=== PATIENT | female | born 1950 | race African-American/Black ===

== ENCOUNTER 2016-04-26 16:54 | Inpatient (IN) | payer OTHER ==
--- NOTE | ~2016-04-26 | HP ---
Unit #: [id number] #: [id number] Patient: NOHEMY HOPKINS [id number] [address] [address] [id number] I MR#: [id number] NAME: NOHEMY HOPKINS ROOM: 00266 Age: 65 Sex: F Admission Date: 04/26/2016 : 1950 Attending Physician: Lucero Ortega M.D. Primary Care Physician: Delmy Oquendo A.P.R.N. HISTORY AND PHYSICAL CHIEF COMPLAINT Shortness of breath. HISTORY OF PRESENT ILLNESS The patient is a 65-year-old female with a past medical history of coronary artery disease, hypertension, hyperlipidemia, diabetes, and CHF, brought to the emergency room with worsening shortness of breath. The patient was recently seen in the emergency room on Sunday night concerning for flu. The patient tested negative on flu screen and was sent home for supportive care. The patient presented today with worsening shortness of breath. The patient was found to have acute kidney injury with a creatinine that went up to 3.2, hyperkalemia with a potassium of 5.4, and AST of 2412 and ALT 981. The patient is a poor historian, and the history is obtained by speaking to the patient's daughter at the bedside. Patient had decreased urine output yesterday, and the family is concerned that the patient might have a UTI. The patient did not void yesterday but voided earlier today, and urinalysis is still pending. The patient is being admitted for the above reasons. Denies any fever or chills. Positive for sick contacts with the flu. Denies missing the diuretics or any new medications. PAST MEDICAL HISTORY 1. Coronary artery disease. 2. Hypertension. 3. Hyperlipidemia. 4. Diabetes. 5. Peripheral arterial disease. PAST SURGICAL HISTORY 1. Cardiac catheterization. 2. Cardiac stent. 3. Aortobifemoral bypass. SOCIAL HISTORY Patient lives with her daughter. She quit smoking back in 2010. Her code status is Full Code. FAMILY HISTORY Diabetes. ALLERGIES No known drug allergies. HOME MEDICATIONS Unit #: [id number] #: [id number] Patient: NOHEMY HOPKINS 1. Lipitor. 2. Losartan. 3. Coated aspirin. 4. Vitamin. 5. Glipizide. 6. Metoprolol. 7. Tramadol. 8. Plavix. 9. Metformin. 10. Januvia. 11. Zetia. 12. Hydralazine. 13. Humibid. 14. Lasix. REVIEW OF SYSTEMS A 14-point review of systems was performed and only pertinent positive findings are described above. The remaining are negative. PHYSICAL EXAMINATION GENERAL: Patient is lying in bed not in acute distress. VITAL SIGNS: Temperature 98.7, pulse 43, respiratory rate 18, blood pressure 125/54, and saturating 94% on room air. HEENT: Head atraumatic, normocephalic. Pupils equal, round, and reactive to light and accommodation. Dry mucous membranes. NECK: Supple. No JVD. LUNGS: Decreased air entry at the bases. Positive for wheezing. HEART: Regular rate and rhythm. ABDOMEN: Soft. Positive bowel sounds. Complains of abdominal tenderness. EXTREMITIES: No cyanosis, no clubbing. Positive for pedal edema. NEUROLOGIC: Patient is sleepy and answers questions yes or no. No gross focal motor deficit. DIAGNOSTIC STUDIES LABORATORY: Glucose 232, BUN 40, creatinine 3.2, sodium 130, potassium 5.4, chloride 97, bicarb 22, calcium 9.2, total protein 7.1, direct bilirubin 0.5, AST 2412, ALT 981, and alkaline phosphatase 83. BNP is 1192. INR is 1. WBC 5.9, hemoglobin 11.4, hematocrit 36.5, platelets 58,000, neutrophils 75.3%, and bandemia with 11%. Urinalysis is pending. IMAGING: Chest x-ray shows cardiomegaly. No acute process identified. ASSESSMENT 1. Acute kidney injury. 2. Hyperkalemia. 3. Acute on chronic diastolic congestive heart failure. 4. Hyponatremia. 5. Congestive liver with elevated liver function tests. PLAN Admit the patient to inpatient with telemetry. Will have Renal and Cardiology consults. Check a renal ultrasound. Check urinalysis with cultures. Check echocardiogram. Repeat the labs again in the morning. DuoNebs as needed. Continue with sliding scale low-dose. Further recommendations will follow. Dictated by Lucero Ortega M.D. Unit #: [id number] #: [id number] Patient: KELLIE,NOHEMYStanley Steel TD: 04/26/2016 20:28 JOB #: [id number] HISTORY AND PHYSICAL X X HISTORY AND PHYSICAL
--- NOTE | ~2016-04-26 | US84 ---
[id number] [facility]. [facility] [address]. [place], [place] [address] [id number] I MR#: [id number] Acc #: [id number] NAME: NOHEMY HOPKINS : 1950 SEX: F STUDY DATE/TIME: 04/27/2016 9:57 UNIT: [facility] ROOM: [facility] STUDY DESCRIPTION: US LE Veins Complete Linwood Stdy Attending Physician: Trent Izquierdo M.D. Ordering Physician: Mary Kay Goode M.D. Primary Care Physician: Delmy Oquendo A.P.RGwen MEDICAL IMAGING REPORT This report is preliminary unless electronic signature is present EXAM Bilateral lower extremity venous duplex date of examination is 04/27/2016 HISTORY Bilateral lower extremity pain and swelling times several years. FINDINGS There is phasic spontaneous flow with respiration of the right and left common femoral, deep femoral, femoral, popliteal, anterior and posterior tibial, peroneal, saphenous veins. There is compressibility of all of these vein lumens as well, bilaterally. IMPRESSION No evidence of a DVT of the right or left lower extremity on today's exam. Dictated by... Ron Aponte M.D. THIS IS AN ELECTRONICALLY VERIFIED REPORT Ron Aponte M.D. at 04/27/2016 2:24 PM HEATH/brennan TD: 04/27/2016 13:14 JOB #: [id number] MEDICAL IMAGING REPORT COPY
--- NOTE | ~2016-04-26 | CR72 ---
[facility] A Service of [facility] RADIOLOGY TEXT RESULTS PATIENT: NOHEMY HOPKINS [facility] UNIT #: [id number] AGE: [address]: Trent Izquierdo MD SEX: F ORDER DR: [id number] [facility] [address] [facility]. [place], [place] [address] [id number] E MR#: [id number] Acc #: [id number] NAME: NOHEMY HOPKINS : 1950 SEX: F STUDY DATE/TIME: 04/26/2016 15:53 UNIT: [facility] ROOM: STUDY DESCRIPTION: CR Chest Single View Portable Attending Physician: Ronny Merritt M.D. Ordering Physician: Ronny Merritt M.D. Primary Care Physician: Delmy Oquendo A.P.R.N. MEDICAL IMAGING REPORT This report is preliminary unless electronic signature is present EXAM AP portable chest 04/26/2016 COMPARISON 04/25 HISTORY Shortness of breath and weakness for 3 days. FINDINGS An AP portable view is obtained showing cardiac enlargement. Pulmonary vascular pattern of the chest appears normal. Lungs are clear with no acute process seen. There are calcifications of the mitral valve annulus. CONCLUSION Cardiomegaly. No acute process identified. Dictated by... Dariusz Steve M.D. THIS IS AN ELECTRONICALLY VERIFIED REPORT Dariusz Steve M.D. at 04/27/2016 4:31 PM TONY/evaristo TD: 04/26/2016 17:47 JOB #: [id number] MEDICAL IMAGING REPORT COPY
--- NOTE | ~2016-04-26 | CO ---
Unit #: [id number] #: [id number] Patient: NOHEMY GARCIA [id number] [address] [place], [place] [address] [id number] I MR#: [id number] NAME: NOHEMY GARCIA ROOM: [facility] Age: 65 Sex: F Admission Date: 04/26/2016 : 1950 Attending Physician: Trent Izquierdo M.D. Primary Care Physician: Delmy Oquendo A.P.R.N. Consultation Date: 04/27/2016 CONSULTATION REPORT REASON FOR CONSULTATION Asked to see urgently for shortness of breath. HISTORY OF PRESENT ILLNESS 65-year-old female who is a poor historian who we had seen at this institution last year. She had an abnormal CT scan with adenopathy and, according to my note, she was going to be set up for bronchoscopy and biopsy with EVUS. Apparently, that did no occur. She tells me she has been short of breath for three months. Her daughter states that she was admitted to this hospital three months ago, placed on oxygen with an unknown diagnosis. There was no record in the EHR of her being admitted to this hospital. She has had a more abrupt onset of shortness of breath but a lot of GI symptoms including lower abdominal pain and nausea and vomiting. No real sputum production, hemoptysis, chest pain but she has had wheezing. She apparently was at the emergency room and felt to have influenzae or at least a flu-like illness and her flu screen was negative. She apparently was sent home with supportive care. She re-presented to the emergency room and as found to have marked metabolic abnormalities including acute kidney injury, shortness of breath, etc. Of note, her chest x-ray was entirely clear. PAST MEDICAL HISTORY Extensive and is remarkable for: 1. Coronary artery disease. 2. Hypertension. 3. Hyperlipidemia. 4. Diabetes. 5. Congestive heart failure. 6. Apparently chronic kidney disease as she is followed by recreation clerk in the office. 7. Hyperlipidemia. 8. Peripheral vascular disease. 9. She has been status post aortobi-fem bypass. MEDICATIONS According to the EHR: 1. Lipitor. 2. Losartan. 3. Aspirin. 4. Glipizide. 5. Metoprolol. 6. Tramadol. 7. Plavix. 8. Metformin. Unit #: [id number] #: [id number] Patient: NOHEMY GARCIA 9. Januvia. 10. Zetia. 11. Hydralazine. 12. Humibid. 13. Lasix. She is on no inhaled medications at home. She wears oxygen 24 hours a day. ALLERGIES No known medical allergies. SOCIAL HISTORY Quit smoking. She told me 15 years ago, the EHR states she quit six years ago. Apparently lives with her daughter. FAMILY HISTORY No familial lung disease. REVIEW OF SYSTEMS As above. She has had bilateral leg edema. She seems to be achy, in pain all over. No definite fever, headache. No definite hematuria, dysuria. She does complain of lower abdominal discomfort. Further review of systems as above or negative. PHYSICAL EXAMINATION GENERAL: Reveals a patient who appears somewhat dyspneic and uncomfortable. VITAL SIGNS: She had a T-max of 100.5, pulse of 96, respiratory rate of 24, blood pressure of 144/67. 5 foot 6, 247 pounds. BMI is 40. HEENT: Pupils equal, round, reactive to light. Sclerae anicteric. Head atraumatic. Neck is supple. No supraclavicular or cervical adenopathy appreciated. Mucous membranes somewhat dry. CHEST: She was receiving a bedside echo. Posterior auscultation not performed. She had expiratory wheeze anteriorly. No stridor. CARDIAC EXAMINATION: Reveals distant heart tones. Regular rate and rhythm. No definite pathologic murmur, rub or gallop. ABDOMEN: Soft. She does have tenderness but it is generalized tenderness all over her body. She did seem to have local periumbilical tenderness. EXTREMITIES: Bilateral significant 2 to 3+ edema. Very tender to minimal palpation. NEUROLOGIC EXAM: Formal exam not performed but no definite focal muscle or sensory deficits. SKIN: Warm and dry. DIAGNOSTIC STUDIES LABORATORY: She had an arterial blood gas - pH of 7.28, pCO2 of 43, pO2 of 64 on 2 L. Her BUN is 47, creatinine is 3.4 and appears worse. Her sodium is 133, potassium 5.8. AST is 2412, ALT 981. BNP is 1192. Hemoglobin A1c has been elevated in the past and has not been rechecked. White blood cell count 4.9, hemoglobin 10.7, platelet count 51. Influenzae screen on the was negative. Urinalysis - 2+ leukocyte esterase, 10-25 white cells, 4+ bacteria. I do Unit #: [id number] #: [id number] Patient: NOHEMY GARCIA not see where she received antibiotics. She may have received one dose of Solu-Medrol but it is hard to tell from the chart. IMAGING: Chest x-ray was entirely clear last night. CARDIOVASCULAR: EKG - sinus rhythm. Echocardiogram - RV dilation. LV function appears normal. LV cavity appears small. RV pressures are elevated, estimated at 66. Formal report is pending. IMPRESSION 1. Multiple issues exist including metabolic acidosis with no significant respiratory compensation. 2. Shortness of breath, most likely secondary to above and possibly some element of chronic obstructive pulmonary disease. 3. Elevated BNP but no definite evidence of congestive heart failure: Could be related to RV strain. 4. Suspect sepsis, suspect urinary source but consider abdominal sources. 5. Abdominal pain, possibly secondary to urinary tract infection, consider other. 6. Acute respiratory failure. 7. Chronic respiratory failure, on home oxygen: Details very unclear. 8. Pulmonary hypertension. 9. Thrombocytopenia. 10. Wheezing, possible chronic obstructive pulmonary disease. 11. Abnormal chest CT in the past with fairly unremarkable chest x-ray now. 12. Multiple medical problems including diabetes, heart disease, hypertension, etc. 13. Acute kidney injury with hyperkalemia. PLAN See orders. She will have a variety of stat labs including a BHOB, lactate, cortisol and D-dimer. Given her kidney function, a CT angiogram could not be performed. Given her instability, CT abdomen could not be performed. Broad spectrum antibiotics for urinary, possible pulmonary and abdominal sources. Blood cultures have been performed. Pulse steroids, nebulized bronchodilators. Given her shortness of breath, I am concerned that she will not be able to maintain adequate minute ventilation. Bicarb will be supplemented. Renal has been consulted and they can adjust IV fluids accordingly. Bicarb should also help treat her hyperkalemia. Once she is stable, will consider CT scan of the chest versus CT scan of the abdomen versus both. Given her obesity and pulmonary hypertension, consider outpatient NPSG. Thank you very much for allowing me to participate in the care of Ms. Garcia. Dictated by... Cirilo Roca M.D. SHEILA/uli Unit #: [id number] #: [id number] Patient: KELLIENOHEMY TD: 04/27/2016 12:02 JOB #: [id number] CONSULTATION REPORT X Cirilo Roca MD CONSULTATION REPORT
--- NOTE | ~2016-04-26 | EKG ---
PATIENT: NOHEMY HOPKINS UNIT #: [id number] Ventricular Rate: 44 BPM Atrial Rate: 44 BPM P-R Interval: 126 ms QRS Duration: 128 ms Q-T Interval: 552 ms QTC Calculation(Bezet): 471 ms P Critz: 78 degrees Calculated R Critz: -74 degrees Calculated T Critz: 18 degrees Diagnosis Line: Marked sinus bradycardia Diagnosis Line: Possible Left atrial enlargement Diagnosis Line: Left axis deviation Left anterior fascicular block Diagnosis Line: Right bundle branch block Diagnosis Line: Inferior infarct (cited on or before 04-NOV-2012) Diagnosis Line: Abnormal ECG Diagnosis Line: When compared with ECG of 25-APR-2016 02:39, Diagnosis Line: (unconfirmed) Diagnosis Line: Borderline criteria for Lateral infarct are no Diagnosis Line: longer Present Diagnosis Line: T wave inversion less evident in Anterior leads Diagnosis Line: Confirmed by AMY WASHINGTON MD ([id number]) on 04/26/2016 Diagnosis Line: 6:27:57 PM INTERPRETING MD: FELIX ASHLEY
--- NOTE | ~2016-04-26 | CO ---
Unit #: [id number] #: [id number] Patient: NOHEMY HOPKINS [id number] [address] [place], [place] [address] [id number] I MR#: [id number] NAME: NOHEMY HOPKINS ROOM: [facility] Age: 65 Sex: F Admission Date: 04/26/2016 : 1950 Attending Physician: Trent Izquierdo M.D. Primary Care Physician: Delmy Oquendo A.P.R.N. CONSULTATION REPORT REASON FOR CONSULTATION Consulted for acute on chronic renal failure, hyperkalemia, acute non-ST SD, decompensated heart failure, hyper(1) metabolic acidosis. HISTORY OF PRESENT ILLNESS This patient is a 65-year-old pleasant female who is followed by my partner, Dr. Hercules, for chronic kidney disease. She has known history of chronic (2) problems, including type 2 diabetes, hypertension, hyperlipidemia, obesity. Patient has scarcely followed in the clinic. Patient had a baseline creatinine of 1.4 in April. She reported for the last week she has been feeling fatigued, having off and on chest pain, for which she has been using her 's nitroglycerin with some relief. The patient came in because she was having progressive swelling of the legs, increased shortness of air and was feeling generally very fatigued. The patient was found to have acute on chronic renal failure with creatinine increased to 3.4, potassium to 5.8. The patient has known degree of 2+ proteinuria, indicative of underlying chronic kidney disease from diabetes. On top of that, the patient has acute kidney injury from decompensated heart failure following acute non-ST SD. The patient clearly looks to be in decompensated heart failure at this time. She denied any urinary complaints of dysuria, frequency of urination or hesitancy of urination. She has +2 pitting edema, elevated JVD and crackles in the lungs, indicative of CHF, and has elevated BNP and troponin. Already seen by cardiology. PAST MEDICAL HISTORY Past medical history for this patient is as per history of present illness. FAMILY HISTORY Noncontributory. She does have a family history of diabetes. SOCIAL HISTORY She is an ex-smoker. Smoked for at least 15 years before quitting. ALLERGIES She has no known drug allergies. HOME MEDICATIONS 1. Atorvastatin 40 mg daily. 2. Aspirin 81 mg daily. 3. Cholecalciferol 1,000 mg daily. 4. Metoprolol 50 b.i.d. 5. Plavix 75 mg daily. Unit #: [id number] #: [id number] Patient: NOHEMY HOPKINS 6. Januvia 100 mg daily. 7. Zetia 10 mg daily. 8. Hydralazine 50 t.i.d. 9. Guaifenesin. 10. The patient received a dose of Rocephin. 11. Sliding scale insulin. 12. She was on metformin, which has been discontinued. PHYSICAL EXAMINATION GENERAL: The patient is lethargic. VITAL SIGNS: Temperature is 97.9, pulse 59, blood pressure 132-188 systolic. Diastolic is 76-63. HEENT: Mild pallor. No oral exudate. NECK: Neck is supple. Positive JVD. No bruit. No thyromegaly. No cervical lymphadenopathy. RESPIRATORY: Chest has fine crackles bilaterally and posteriorly. CARDIOVASCULAR: Regular rhythm. Tachycardic. No rub. ABDOMEN: Abdomen is bulky, soft, nontender, nondistended. Positive bowel sounds. EXTREMITIES: Has +1 pitting edema. DIAGNOSTIC STUDIES LAB DATA: The patient has +2 proteinuria on urine. No other active sediments. Chemistry - Sodium 133, potassium 5.8, chloride 98, bicarb 22, BUN 47, creatinine 3.4, glucose 240. IMAGING: The patient's renal ultrasound was negative for any obstruction. The patient also has positive troponin of 0.45 and BNP of 1,162. ASSESSMENT/IMPRESSION Acute on chronic renal injury, most likely from decompensated heart failure following acute SD. Will optimize biventricular function. Increase the dose of hydralazine to 75 t.i.d. Continue beta-blockers. Add diuretic Bumex 2 mg IV q.8 hours. Patient definitely seems to be in decompensated heart failure, and optimization of her volume status will help. Will also start the patient on Mucomyst in anticipation of possible cardiac cath to understand the anatomy of coronary disease, but we will wait until her kidneys get better. Dictated by... Santino Feliz/emili TD: 04/27/2016 13:33 JOB #: [id number] CONSULTATION REPORT X Jef Martin MD CONSULTATION REPORT
--- NOTE | ~2016-04-26 | CR72 ---
[facility] A Service of [facility] RADIOLOGY TEXT RESULTS PATIENT: NOHEMY HOPKINS LOCATION: [address] : [birth year] UNIT #: [id number] AGE: [address]: Trent Izquierdo MD SEX: F ORDER DR: [id number] [place] [id number] [place], [place] [address] [id number] I MR#: [id number] Acc #: [id number] NAME: NOHEMY HOPKINS : 1950 SEX: F STUDY DATE/TIME: 04/27/2016 10:50 UNIT: [facility] ROOM: [facility] STUDY DESCRIPTION: CR Chest Single View Portable Attending Physician: Trent Izquierdo M.D. Ordering Physician: Cirilo Roca M.D. Primary Care Physician: Delmy Oquendo A.P.R.N. MEDICAL IMAGING REPORT This report is preliminary unless electronic signature is present EXAM Chest, portable, 04/27/2016, 1050 hours. CLINICAL HISTORY 65-year-old with history of diabetes and cardiac stents complaining of shortness of air and weakness today. COMPARISON 04/26/2016 FINDINGS Portable upright chest demonstrates stable moderate cardiomegaly with prominence of the main pulmonary artery. There are benign calcified granulomatous changes. The lungs are clear and there are no effusions. IMPRESSION Stable moderate cardiomegaly with prominence of the main pulmonary artery. Stable benign calcified granulomatous changes. No acute pulmonary or pleural findings. Dictated by... Dulce Maria Cruz M.D. THIS IS AN ELECTRONICALLY VERIFIED REPORT Dulce Maria Cruz M.D. at 04/27/2016 2:32 PM LISSETTM/camila TD: 04/27/2016 13:37 JOB #: [id number] MEDICAL IMAGING REPORT [facility] A Service of [facility] RADIOLOGY TEXT RESULTS PATIENT: NOHEMY HOPKINS LOCATION: [facility] : [birth year] UNIT #: [id number] AGE: [address]: Trent Izquierdo MD SEX: F ORDER DR: IISAH
--- NOTE | ~2016-04-26 | DS ---
Unit #: [id number] #: [id number] Patient: NOHEMY HOPKINS [id number] [facility] [address]. [place], [place] [address] [id number] I MR#: [id number] NAME: NOHEMY HOPKINS ROOM: 309 Age: 65 Sex: F Admission Date: 04/26/2016 : 1950 Discharge Date: 05/02/2016 Attending Physician: Domingo Das M.D. Primary Care Physician: Delmy Oquendo A.P.R.N. DISCHARGE SUMMARY DISCHARGE DIAGNOSES 1. Acute non ST segment elevation myocardial infarction present on admission. Medical management only per cardiology recommendation. 2. Acute on chronic kidney disease seen by nephrology, asking that nephrology's phone number be given to patient so that she can followup with them outpatient. Creatinine has been stable around 2.0 for the last couple of days. 3. Acute on chronic diastolic heart failure. Will be discharged on Bumex orally. 4. Hypokalemia with hyponatremia, present on admission, has resolved at this time. 5. Transaminitis likely due to some non ST segment elevation myocardial infarction. 6. Metabolic acidosis improved and actually resolved at this time. 7. Acute chronic obstructive pulmonary disease exacerbation, improving, will be discharged with prednisone orally. Followup with Dr. Roca in his office. 8. Acute on chronic hypoxic respiratory failure. She is back to baseline in terms of oxygen usage. 9. Thrombocytopenia with ascites, likely secondary to liver disease. 10. Escherichia coli urinary tract infection present on admission and will be discharged with two more days of Omnicef. 11. Type 2 diabetes mellitus, insulin suggested, please refer to the med rec below. CONSULTANTS Dr. Roca with pulmonary; Dr. Lv Martin with nephrology; [facility] with Dr. Goode. PROCEDURES None. IMAGING STUDIES 1. Chest x-ray 04/25/2016: Impression - cardiomegaly with congestion and emphysema, mild opacity in the lung base may reflect some atelectasis or potentially some developing early in the pulmonary edema. 2. Chest x-ray on 04/26/2016: Conclusion - cardiomegaly. No acute process identified. 3. Renal ultrasound on 04/26/2016: Impression - no urinary tract calculi or obstruction. Ascites noted. 4. Lower extremity duplex ultrasound: Impression - no evidence of a DVT of the right or left lower extremity on today's exam. 5. Chest x-ray on 04/27/2016: Impression - stable moderate cardiomegaly with prominence of the main pulmonary artery. Stable benign Unit #: [id number] #: [id number] Patient: NOHEMY HOPKINS calcified granulomatous changes. No acute pulmonary or pleural findings. 6. Chest x-ray on 04/28/2016: Findings - cardiomegaly is stable. Mitral annulus calcification is present. There is some mild atelectasis in the base of the lungs, otherwise, are clear. Right arm approach PICC is in the lower SVC near the cavoatrial junction. 7. Nuclear medicines with a pulmonary ventilation scanning on 04/28/2016: Impression - there are no perfusion abnormalities and, there is no evidence of pulmonary embolus. The ventilation study shows slight heterogenous distribution suggesting emphysematous changes. LABORATORY STUDIES On the day of discharge the patient's labs include BMP - glucose 195, BUN 60, creatinine 2.0, sodium 139, potassium 3.7, chloride 91, CO2 34, calcium 10.5, magnesium 2.0, CBC with WBC of 9.9, rbc's is 4.31, hemoglobin 11.3, hematocrit 34.8, MCV 84.2, MCH 27.3, MCHC is 32.4, RDW is 18.3, platelets is 33. Microbiology - the patient had a blood culture with no growth and urine culture with E. coli sensitive to cephalosporin. HOSPITAL COURSE The patient is a pleasant 65-year-old female with a past medical history of coronary artery disease, essential hypertension, hyperlipidemia, type 2 diabetes and CHF who presents to the emergency department with worsened shortness of breath. The patient was recently seen in the emergency department on Sunday night, concerning for flu. The patient was tested negative on flu screen and was sent home for supportive care. The patient presented back to the emergency department due to worsening shortness of breath. She was found to have acute kidney injury but the creatinine had increased up to 3.2. Hyperkalemia with potassium of 5.4 and AST of 2,412 and ALT of 981. The patient is a poor historian and history was obtained by speaking to the patient's daughter who is at the bedside. The patient had decrease urine output on the day prior to admission and the family is concerned that the patient may have had a UTI. The patient has not voided early on the day of admission. Urinalysis was still pending at the time of assessment by the admitting physician. She had denied fevers and chills. She has had a diuretic as new medication. She was admitted for acute kidney injury, hyperkalemia, acute on chronic diastolic heart failure, congestion of liver enzymes. Dr. Roca of pulmonary was consulted, given patient's comorbidities, as well as shortness of breath with acute on chronic hypoxic respiratory failure who had suggested that we treat this with prednisone and support with bronchodilators, as well as Mucinex and supportive oxygen therapy. She was also seen in consultation with nephrology, Dr. Martin, with regards to her acute on chronic kidney disease. She is regularly followed by Dr. Mai and it was felt that patient's acute on chronic renal failure was due to cardiorenal congestion. Therefore, it was best to optimize her cardiac function with adjusting her blood pressure meds, as well as diuresing her cautiously with Bumex IV every 8 hours. This was eventually transitioned to Bumex IV twice daily and she will be discharged on Bumex 2 mg orally daily, as well as Zaroxolyn per nephrology's recommendation. Cardiology was consulted given patient's bradycardia and heart failure, who had assist with optimizing patient's medication and had suggested to treat the patient's NSTEMI through medical management, as patient continues to get diuresis, oxygenation and respiratory failure had improved with the assist of nephrology to optimize her acid base. She eventually was felt back to her normal baseline. At this time it was felt that patient had reached her maximum hospital benefit stay and will be discharged home in stable condition. She is able to be getting cardiac rehab for her NSTEMI, as Unit #: [id number] #: [id number] Patient: NOHEMY HOPKINS well as she will followup with Dr. Roca's nurse practitioner in about two weeks for PFTs and follow up with Dr. Roca in four to six weeks. She will followup with Dr. Goode on 06/30/2016 at 10:15 a.m. and followup with the primary care doctor within one to two weeks. She can followup with Dr. Meneses and his associates and will call the office for a followup appointment. DISCHARGE CONDITION Stable. DISCHARGE DIET Heart healthy, as well as consistent carb per [place] [employer] recommendations. ACTIVITIES Resume activities as was prior to hospitalization with ambulating every day as tolerated and with the hope of cardiac rehab she will continue to improve in her symptoms. DISCHARGE MEDICATIONS 1. Symbicort two puffs inhaled twice daily. 2. Prednisone 40 mg daily for the next five days. 3. Tylenol 325 mg orally every 6 hours as needed for pain or fever. 4. She is to stop the metformin 1,000 mg orally daily. 5. Januvia will be decreased to 50 mg orally daily, the renal recommendation. 6. Continue with the Zetia 10 mg orally daily. 7. Norvasc 10 mg orally daily. 8. Metoprolol 50 mg orally twice daily. 9. Omnicef 300 mg orally twice daily for the next two days. 10. Bumex 2 mg orally twice daily. 11. Stop Lasix. 12. Zaroxolyn 500 mg orally daily. 13. Guaifenesin 1 tablet orally twice daily. 14. Lipitor 40 mg orally daily. 15. Hydralazine will be increased to 100 mg 3 times daily. 16. Stop losartan. 17. Levemir 12 units subcutaneously at bedtime, as well as low dose sliding scale insulin with Humalog prior to meals and at bedtime. 18. Allopurinol 150 mg orally daily. 19. Aspirin 81 mg orally daily. 20. Tramadol 50 mg orally daily. 21. Plavix 75 mg orally daily. 22. Glipizide 10 mg orally twice daily. 23. Imdur 60 mg orally daily. 24. Vitamin D 1,000 units orally daily. This dictation took 40 minutes and included patient education and to coordinate care. Dictated by... Estela Lema PA-C for Santino Handley TD: 05/05/2016 07:23 Unit #: [id number] #: [id number] Patient: NOHEMY HOPKINS JOB #: [id number] DISCHARGE SUMMARY X X DISCHARGE SUMMARY
--- NOTE | ~2016-04-26 | CR72 ---
[facility] A Service of [place] [facility] RADIOLOGY TEXT RESULTS PATIENT: NOHEMY HOPKINS LOCATION: [facility] 309-01 : [birth year] UNIT #: [id number] AGE: [address]: Trent Izquierdo MD SEX: F ORDER DR: [id number] [facility] [address] [place], [place] [address] [id number] I MR#: [id number] Acc #: [id number] NAME: NOHEMY HOPKINS : 1950 SEX: F STUDY DATE/TIME: 04/28/2016 04:05 UNIT: [facility] ROOM: [facility] STUDY DESCRIPTION: CR Chest Single View Portable Attending Physician: Trent Izquierdo M.D. Ordering Physician: Cirilo Roca M.D. Primary Care Physician: Sharmaine LainezRGwen MEDICAL IMAGING REPORT This report is preliminary unless electronic signature is present EXAM Portable chest 04/28/2016 at 0405 INDICATION Weakness and shortness of air with dizziness for 3 days. FINDINGS AP portable chest is compared with 04/27/2016. Cardiomegaly is stable. Mitral annulus calcification is present. There is some mild atelectasis in the bases. The lungs, otherwise, are clear. Right arm-approach PICC is in the lower SVC near the cavoatrial junction. Dictated by... Andrew Mojica Jr., M.D. THIS IS AN ELECTRONICALLY VERIFIED REPORT Andrew Mojica Jr., M.D. at 05/01/2016 7:21 AM RENNY/ann-marie TD: 04/28/2016 09:05 JOB #: [id number] MEDICAL IMAGING REPORT COPY
--- NOTE | ~2016-04-26 | US77 ---
[facility] A Service of [facility] RADIOLOGY TEXT RESULTS PATIENT: NOHEMY HOPKINS LOCATION: [facility] 565-01 : [birth year] UNIT #: [id number] AGE: [address]: KEVAN ORTEGA MD SEX: F ORDER DR: [id number] [facility] [address] [place], [place] [address] [id number] I MR#: [id number] Acc #: [id number] NAME: NOHEMY HOPKINS : 1950 SEX: F STUDY DATE/TIME: 04/26/2016 19:59 UNIT: [facility] ROOM: [facility] STUDY DESCRIPTION: US Kidney Bilateral Complete Attending Physician: Kevan Ortega M.D. Ordering Physician: Ed Doctor [id number] [facility] Primary Care Physician: Delmy Oquendo MEDICAL IMAGING REPORT This report is preliminary unless electronic signature is present EXAM Bilateral renal sonogram performed on 04/26/2016 HISTORY A 65-year-old female with nausea, vomiting and diarrhea. Patient has had pain for the past 3 days. Elevated creatinine is now present. Findings the right kidney measures 10.3 x 3.3 x 2.9 cm and the left kidney measures 3.8 x 11.8 x 3.8 cm. No hydronephrosis, shadowing calculi or mass is seen. No perinephric fluid collection is present bilaterally. The bladder is not fully distended but shows no internal debris year wall thickening. There is ascites present within the abdomen. IMPRESSION 1. No urinary tract calculi or obstruction. 2. Ascites. Dictated by... Sagar Saenz M.D. THIS IS AN ELECTRONICALLY VERIFIED REPORT Sagar Saenz M.D. at 04/26/2016 11:39 PM CATRACHITA/orlin TD: 04/26/2016 22:36 JOB #: [id number] MEDICAL IMAGING REPORT COPY
--- NOTE | ~2016-04-26 | EKG ---
PATIENT: NOHEMY HOPKINS UNIT #: [id number] Ventricular Rate: 62 BPM Atrial Rate: 62 BPM P-R Interval: 122 ms QRS Duration: 134 ms Q-T Interval: 466 ms QTC Calculation(Bezet): 472 ms P Eastern: 71 degrees Calculated R Eastern: -64 degrees Calculated T Eastern: 138 degrees Diagnosis Line: Normal sinus rhythm with sinus arrhythmia Diagnosis Line: Left axis deviation Diagnosis Line: Right bundle branch block Diagnosis Line: Inferior infarct (cited on or before 28-APR-2016) Diagnosis Line: T wave abnormality, consider lateral ischemia Diagnosis Line: Abnormal ECG Diagnosis Line: When compared with ECG of 28-APR-2016 06:09, Diagnosis Line: Premature ventricular complexes are no longer Diagnosis Line: Present Diagnosis Line: Confirmed by PASCUAL MONTANA MD ([id number]) on Diagnosis Line: 04/30/2016 10:54:18 PM INTERPRETING MD: WIN
--- NOTE | ~2016-04-26 | A ---
[facility] Nutrition Therapy DATE: 04/28/16 Patient: NOHEMY HOPKINS Physician: LEX Address: [address] [place] [address] Room/Bed: [address], Zip: [place] [address] Admit Date: 04/26/16 Date of : 51 Height: 5 6 Weight: 255 116 NUTRITIONAL ASSESSMENT: REASON: Diet education and ONS recommendations per RN Admitting Dx: 65 y/o female admitted with SOB and ALICE PMH: CAD, HTN, HLD, CHF, DM Anthropometrics: Ht: 66", Wt: 116 kg, BMI: 40 Labs: Glucose 262, POC 228-267 (04/27), BUN 53, Creat 2.8, GFR 21.9, AST 915, ALT 600, Phos 5.3, A1C 7.0 (11/2015) Meds: Bumex, Lactulose, Vit D, PPI, Solu-Medrol, Novolog (high SSI), Januvia Assessment: Chart reviewed, events noted. Patient transferred to ICU on 04/27, high BMI previously documented. Patient getting VQ scan today due to elevated D-dimer, then to transfer to . PO intake not great at this time due to fatigue and SOB, RN asked RD to see patient for ONS recs and diet education. She is currently on a 2g sodium/CC/1200 ml fluid restriction. Verbal and written diet education given to family in room with the following handouts: -Cardiac/TLC diet -Sodium-free flavoring tips -1800 calorie 5-day sample meal plan Family showed good understanding and motivation for patient to follow diet, grand-daughter states they no longer cook with salt at home. Patient willing to try chocolate Ensure pudding to increase oral kcal/protein intake, nursing reports patient is compliant with fluid restriction. Grand-daughter states she can buy some Ensure pudding for pt at [employer] today. See RD recs, will follow. Dx: 1) Morbid obesity r/t PMH, lifestyle, diet AEB BMI 40. 2) Food and nutrition related knowledge deficit r/t no prior diet education AEB RN request for diet education, CHF, fluid restriction. 3) Inadequate oral intake r/t fatigue, SOB AEB decreased PO intake, need for ONS. Intervention: Diet education, Ensure pudding BID Monitoring, Evaluation and Goals: 1. Adequate oral intake > 50% of meals/supps. 2. Gradual weight loss towards a healthy BMI range. 3. Family/patient understanding and implementation of diet education given. [facility] Nutrition Therapy DATE: 04/28/16 Patient: NOHEMY HOPKINS Physician: LEX Address: [address] [place] [address] Room/Bed: [address], Zip: [place] [address] Admit Date: 04/26/16 Date of : [birth year] Height: 5 6 Weight: 255 116 4. Improvement in lab values. Monitor: Per protocol, criteria to determine if above goals met Recommendations: 1. Continue 2g sodium/consistent carb diet with fluid restriction per MD. Encourage adequate oral intake, RD ordering chocolate Ensure pudding BID due to decreased oral intake at this time. Can D/C supplement once PO intake improves, as the patient needs to lose weight. 2. RD provided both verbal and written diet education on Cardiac/low sodium diet with 5-day meal plan given to family. Family showed good understanding and motivation for patient to follow diet. RD will follow hospital course Moderate nutrition risk Respectfully, Lyla Valentine, ANJELICA, LD [employer] [facility] cc: client file
--- NOTE | ~2016-04-26 | CO ---
Unit #: [id number] #: [id number] Patient: NOHEMY HOPKINS [id number] [facility]. [place] [address] [facility] [place], [place] [address] [id number] I MR#: [id number] NAME: NOHEMY HOPKINS ROOM: [facility] Age: 65 Sex: F Admission Date: 04/26/2016 : 1950 Attending Physician: Trent Izquierdo M.D. Primary Care Physician: Delmy Oquendo A.P.R.N. CONSULTATION REPORT REASON FOR CONSULTATION Bradycardia and possible CHF. HISTORY OF PRESENT ILLNESS This is a pleasant 65-year-old female who is followed in the office by Dr. Goode. She has a past medical history of peripheral arterial disease, hypertension, OR in 2001, coronary artery disease, hyperlipidemia, diabetes mellitus and diastolic congestive heart failure. She presented to the emergency room with complaints of shortness of air and weakness, as well as increasing lower extremity edema. The patient and the granddaughter, who is at bedside, state the patient was just in the emergency room on Sunday secondary to possible flu-like symptoms. The patient had body aches, shortness of breath, intermittent chills. Denied any fever. Was negative for the flu and sent home. She returned to the emergency room on April 26 again with complaints of worsening shortness of breath. The patient states, however, this has been going on and occurring intermittently for the last 3 months. Per the granddaughter, at home she is unable to do much activity secondary to her breathing issues. She does complain of intermittent chest tightness, left-sided, but she states this is worsened with cough. Upon palpation of the chest wall, she is tender. We were asked to see secondary to bradycardia and possible CHF. EKG shows marked sinus bradycardia, rate of 44 beats per minute, possible left atrial enlargement, left axis deviation, right bundle branch block. She has Q waves present in inferior leads. QTc interval is 471 msec. Initial troponins have been negative. The patient has a past medical history of coronary artery disease. She had a cath in [address] Jack with successful balloon angioplasty of the second PDA branch of the RCA where a MINI VISION bare-metal stent was placed x2 overlapping stents. The patient underwent repeat left heart catheterization in [address] Mckeon. At that time she had a 99% in-stent stenosis of the second PDA branch. A XIENCE stent was placed. At that time LVEF was 60%. The patient underwent Lexiscan Cardiolite in 2015, which showed a small abnormal fixed area of inferolateral wall. LVEF at that time was 60%. On admission to the hospital the patient was also noted to have acute kidney injury with a creatinine of 3.4. She also was noted to have elevated liver enzymes, AST of 2,412, ALT of 981, alkaline phosphatase of 83. BNP is 1,192. Her chest x-ray shows cardiomegaly but no acute processes. Unit #: [id number] #: [id number] Patient: NOHEMY HOPKINS The patient is very dyspneic with minimal exertion and even at rest with talking. She states she is unable to lie flat. She typically rests in a recliner secondary to inability to breathe. She has significant lower extremity swelling, probably 3+ bilateral. PAST MEDICAL HISTORY 1. Coronary artery disease with multiple stent placements. 2. Hypertension. 3. Hyperlipidemia. 4. Diabetes mellitus. 5. Congestive heart failure, diastolic. 6. Chronic kidney disease. 7. Hyperlipidemia. 8. Peripheral vascular disease. 9. Cardiac catheterization in [address] Jack showed a successful balloon angioplasty of the second PDA branch of the RCA with MINI VISION bare-metal stent x2 overlapping stents. Second PDA branch was 75% to 80% near the ostial stenosis with 100% midvessel occlusion. Left main was normal. LAD first diagonal was 60% to 70%. Left circumflex stent was widely patent. 10. Repeat heart cath in [address] Mckeon showed 99% in-stent stenosis in the second PDA branch. A XIENCE stent was placed. LVEF was 60%. 11. Lexiscan Cardiolite in 2015 showed an abnormal small fixed area of the inferolateral wall. LVEF was 60%. ' PAST SURGICAL HISTORY 1. Cardiac catheterization. 2. Cardiac stents. 3. Aortobifemoral bypass. 4. C-sections. 5. Tubal ligation. FAMILY HISTORY Denies coronary artery disease. ALLERGIES Lisinopril (cough). HOME MEDICATIONS 1. Lipitor 40 mg p.o. daily. 2. Losartan 100 mg p.o. daily. 3. Aspirin 325 mg p.o. daily. 4. Vitamin D 1,000 units p.o. daily. 5. Glipizide 10 mg p.o. b.i.d. 6. Metoprolol tartrate 50 mg p.o. b.i.d. 7. Tramadol 50 mg p.o. daily. 8. Acetaminophen 325 mg p.o. q.6 hours p.r.n. 9. Clopidogrel 75 mg p.o. daily. 10. Metformin 1,000 mg p.o. b.i.d. 11. Januvia 100 mg p.o. daily. 12. Zetia 10 mg p.o. daily. 13. Hydralazine 50 mg p.o. t.i.d. 14. Humibid LA 600 mg p.o. b.i.d. 15. Lasix 20 mg p.o. daily. 16. Imdur ER 60 mg p.o. daily. REVIEW OF SYSTEMS Unit #: [id number] #: [id number] Patient: NOHEMY HOPKINS Positive for shortness of breath, fatigue, weakness, chills and muscle aches. Otherwise, negative except for what was described in the HPI. PHYSICAL EXAM GENERAL: This is a pleasant 65-year-old female. She is just returning from the restroom. She is extremely dyspneic and short of breath. VITAL SIGNS: Temperature 98.7, "respiratory rate" 43 to 48, respiratory rate 24, blood pressure 144/71. HEENT: Head is atraumatic, normocephalic. Pupils are equal and round. Mucous membranes are dry. NECK: Supple. Positive JVD. No carotid bruits. LUNGS: Clear. Scattered inspiratory wheezing noted. HEART: S1, S2. Regular rate and rhythm. No murmur. ABDOMEN: Soft, obese pannus. Sightly abdominal tenderness. Bowel sounds are positive. EXTREMITIES: Pulses are palpable. Probably 3+ pedal edema bilaterally. NEUROLOGIC: She is alert and oriented. She answers questions appropriately. Moves extremities equally. DIAGNOSTIC STUDIES LABORATORY: Glucose 241, BUN 47, creatinine 3.4, sodium 133, potassium 5.8, chloride 98, CO2 22, magnesium 2, AST 2,412, ALT 981, alkaline phosphatase 83. Initial troponins have been negative x2. BNP is 1,162. Hemoglobin 10.7, hematocrit 34.1, WBC 4.9, platelet count 61,000. IMAGING: Chest x-ray shows cardiomegaly. No acute process identified. CARDIOVASCULAR: EKG shows marked sinus bradycardia, rate of 44 beats per minute, possible left atrial enlargement, left axis deviation, right bundle branch block. Q waves are present in inferior leads. QTc interval is 471 msec. No acute ischemic changes noted. ASSESSMENT 1. Admitted for shortness of breath. 2. Acute on chronic diastolic congestive heart failure. 3. Acute on chronic kidney disease. 4. Hyperkalemia. 5. New onset thrombocytopenia. 6. Urinary tract infection. 7. Possible elevated liver function test secondary to congestion versus medication cause. PLAN Patient was admitted secondary to shortness of breath, lower extremity swelling and increasing fatigue. She has extensive bilateral lower extremity swelling. Will check STAT two-D echo to reassess LV function. She will be started on fluid restriction, 2-gram sodium, diabetic diet. Will also check a STAT ABG, as well as STAT bilateral lower extremity venous Doppler to rule out DVT. Pulmonary has been consulted. Also, will check lactate level to rule out sepsis. Will trend cardiac enzymes. At this time she will not be placed on any Lovenox secondary to her new onset thrombocytopenia. She will be continued on aspirin, and her Lipitor will be discontinued for now secondary to elevated liver enzymes. Renal has also been consulted to see the patient. She currently has blood cultures and a urine culture, which are pending. It appears that she has a urinary tract infection. Pending results of her blood gas, she may end up being transferred to the unit for closer monitoring. Further recommendations to Unit #: [id number] #: [id number] Patient: NOEHMY HOPKINS pending Dr. Goode's assessment. Dictated by... Sharmaine McleanRGwen for Mary Kay Goode M.D. LMW/db TD: 04/28/2016 08:26 JOB #: [id number] CONSULTATION REPORT X Chayo Rivera APRN X CONSULTATION REPORT
--- NOTE | ~2016-04-26 | EKG ---
PATIENT: NOHEMY HOPKINS UNIT #: [id number] Ventricular Rate: 58 BPM Atrial Rate: 58 BPM P-R Interval: 128 ms QRS Duration: 136 ms Q-T Interval: 512 ms QTC Calculation(Bezet): 502 ms P [place]: 54 degrees Calculated R [place]: -70 degrees Calculated T [place]: 28 degrees Diagnosis Line: Sinus bradycardia with occasional Premature Diagnosis Line: ventricular complexes Diagnosis Line: Left axis deviation Diagnosis Line: Right bundle branch block Diagnosis Line: Inferior infarct (cited on or before 04-NOV-2012) Diagnosis Line: Abnormal ECG Diagnosis Line: When compared with ECG of 27-APR-2016 16:08, Diagnosis Line: (unconfirmed) Diagnosis Line: Premature ventricular complexes are now Present Diagnosis Line: Questionable change in initial forces of Inferior Diagnosis Line: leads Diagnosis Line: T wave inversion no longer evident in Inferior Diagnosis Line: leads Diagnosis Line: Confirmed by AMY WASHINGTON MD ([id number]) on 04/28/2016 Diagnosis Line: 5:27:44 PM INTERPRETING MD: FELIX ASHLEY
--- NOTE | ~2016-04-26 | EKG ---
PATIENT: NOHEMY HOPKINS UNIT #: [id number] Ventricular Rate: 56 BPM Atrial Rate: 56 BPM P-R Interval: 116 ms QRS Duration: 136 ms Q-T Interval: 506 ms QTC Calculation(Bezet): 488 ms P [place]: 51 degrees Calculated R [place]: -57 degrees Calculated T [place]: -20 degrees Diagnosis Line: Sinus bradycardia Diagnosis Line: Right bundle branch block Diagnosis Line: Left anterior fascicular block Diagnosis Line: Bifascicular block Diagnosis Line: Abnormal ECG Diagnosis Line: When compared with ECG of 26-APR-2016 15:49, Diagnosis Line: Left anterior fascicular block is now Present Diagnosis Line: T wave inversion more evident in Anterior leads Diagnosis Line: Confirmed by FELIX ASHLEY, AMY ([id number]) on 04/28/2016 Diagnosis Line: 5:14:43 PM INTERPRETING MD: FELIX ASHLEY
--- NOTE | ~2016-04-26 | BMI ---
[facility] Nutrition Therapy DATE: 04/27/16 Patient: NOHEMY HOPKINS Physician: LEX Address: [address] [place] [address] Room/Bed: [address] [place] [address], Zip: [place] [address] Admit Date: 04/26/16 Date of : 52 Height: 5 6 Weight: 247 112.4 HIGH BMI NOTE: DX: 65 y/o female admitted with SOB and ALICE ANTHROPOMETRICS: Ht: 66", Wt: 112.4 kg, BMI: 40 DIET: 2g sodium/consistent carb/fluid restriction INTERVENTION: Diet as above, meds/fluids per MD RECOMMENDATIONS: Continue current diet to promote a gradual weight loss towards a healthy BMI range. Respectfully, Lyla Valentine RD, LD Food and Nutritional Services [facility] cc: client file
--- NOTE | ~2016-04-26 | NM69 ---
[facility] A Service of [facility] RADIOLOGY TEXT RESULTS PATIENT: NOHEMY HOPKINS LOCATION: [facility] : 51 UNIT #: [id number] AGE: [address]: Trent Izquierdo MD SEX: F ORDER DR: [id number] [facility]. [place], [place] [address] [id number] I MR#: [id number] Acc #: [id number] NAME: NOHEMY HOPKINS : 1950 SEX: F STUDY DATE/TIME: 04/28/2016 11:26 UNIT: A PCU ROOM: [facility] STUDY DESCRIPTION: NM Pulm Vent and Perf Attending Physician: Trent Izquierdo M.D. Ordering Physician: Cirilo Roca M.D. Primary Care Physician: Sharmaine LainezRGwen MEDICAL IMAGING REPORT This report is preliminary unless electronic signature is present EXAM Ventilation/perfusion study of the lungs. DATE OF EXAM 04/28/2016 INDICATION Elevated D-dimer. Pulmonary hypertension. Fever. TECHNIQUE The ventilation study is done with 32.6 mCi technetium-99m DTPA in aerosol form, and the perfusion study is done with 5.72 mCi of technetium-99m MAA. COMPARISON STUDIES There is a comparison chest x-ray taken from the same day. FINDINGS Perfusion ventilation images were obtained. The perfusion images are normal. The ventilation images are somewhat inhomogeneous to the emphysematous change. IMPRESSION There are no perfusion abnormalities and, therefore, there is no evidence of pulmonary embolus. The ventilation study shows slight heterogeneous distribution suggesting emphysematous change. Dictated by... Shubham Puckett M.D. THIS IS AN ELECTRONICALLY VERIFIED REPORT Shubham Puckett M.D. at 04/28/2016 3:57 PM GLORIA/carrol [facility] A Service of [facility] RADIOLOGY TEXT RESULTS PATIENT: NOHEMY HOPKINS LOCATION: [facility] - : 51 UNIT #: [id number] AGE: [address]: Trent Izquierdo MD SEX: F ORDER DR: TD: 04/28/2016 15:27 JOB #: [id number] MEDICAL IMAGING REPORT COPY
[2016-04-26 16:04] LABS: BASOPHIL% 0.5 % (0-2.5); HEMATOCRIT 36.5 % (35.0-45.0); HEMOGLOBIN 11.4 gm/dL (12.0-16.0); LYMPHOCYTE# 0.8 X10e3 (1.0-3.5); LYMPHOCYTE% 12.8 % (17.0-45.0); MEAN CELL VOLUME 87.3 FL (83-96); MEAN CORPUSCULAR HEMOGLOBIN 27.2 PG (28-34); MEAN CORPUSCULAR HGB CONC 31.2 g/dL (30-36); MEAN PLATELET VOLUME 8.4 FL (6.5-11.5); MONOCYTE# 0.7 X10e3 (0-1.0); MONOCYTE% 11.4 % (3.0-12.0); NEUTROPHIL# 4.4 X10e3 (1.5-7.1); NEUTROPHIL% 75.3 % (40-75); RED BLOOD COUNT 4.18 X10e (3.90-5.30); RED CELL DISTRIBUTION WIDTH 18.3 % (11.0-15.5); WHITE BLOOD COUNT 5.9 X10e3 (4.0-10.5)
[2016-04-26 16:24] LABS: DIFF IND YES; PLATELET COUNT 58 X10e3 (140-420)
[2016-04-26 16:28] LABS: ALBUMIN SERUM 3.9 g/dL (3.5-5.0); BILIRUBIN, DIRECT 0.5 mg/dL (0.0-0.2); BILIRUBIN,INDIRECT 0.6 mg/dL (0.0-0.9); BILIRUBIN,TOTAL 1.1 mg/dL (0.2-2.0); BUN/CREATININE RATIO 12.5; CALCIUM SERUM 9.2 mg/dL (8.4-10.2); CREATININE SERUM 3.2 mg/dL (0.6-1.4); GLOM FILT RATE Estimated 18.8 mL/min (>60); PLATELET ESTIMATE DECREASED (NORMAL); PROTEIN TOTAL SERUM 7.1 g/dL (6.0-8.3)
[2016-04-26 16:32] LABS: POTASSIUM 5.4 mmol/L (3.5-5.1)
[~2016-04-26 16:54] MED LIST: ASPIRIN ENTERI325 M1 PO; CLOPIDOGREL BIS75 MG PO; COATED ASPIRIN325 M1 PO; GLIPIZIDE10 MG PO; GLYBURIDE PO; HUMIBID-LA600 MG PO; HYDRALAZINE HCL25 MG PO; HYDRALAZINE HCL50 MG PO; HYDROCHLOROTHIA25 MG PO; IMDUR-ER60 M1 PO; JANUVIA PO; LASIX20 MG PO; LIPITOR20 MG PO; LISINOPRIL20 MG PO; LOSARTAN POTASS50 MG PO; METFORMIN HCL1000 M1 PO; METOPROLOL TART25 MG PO; NORVASC PO; PAIN & FEVER325 MG PO; PLAVIX PO; TOPROL XL50 MG PO; TRAMADOL HCL50 M1 PO; VITAMIN D 22000 UNIT PO; ZETIA PO
[2016-04-26 23:58] LABS: URINE SOURCE CLEAN CATCH
[2016-04-27 00:03] LABS: URINE APPEARANCE TURBID; URINE BLOOD NEG (NEG); URINE COLOR DK YELLOW; URINE GLUCOSE NEG (NEG); URINE KETONE TRACE (NEG); URINE LEUKOCYTE ESTERASE 2+ (NEG); URINE NITRATE NEG (NEG); URINE PROTEIN 2+ (NEG); URINE SPECIFIC GRAVITY 1.018 (1.003-1.035)
[2016-04-27 00:05] LABS: CULTURE INDICATED? YES; URBCS1 AUWI 0-2 /[HPF] (0-2); URINE BACTERIA AUWI 4+ (NEGATIVE); URINE SQUAMOUS EPITHELIAL CELL MOD /[HPF]
[2016-04-27 00:15] LABS: URINE BILIRUBIN POS (NEG)
[2016-04-27 00:16] LABS: URINE MUCUS PRESENT
[2016-04-27 06:53] LABS: BASOPHIL% 0.1 % (0-2.5); HEMATOCRIT 34.1 % (35.0-45.0); HEMOGLOBIN 10.7 gm/dL (12.0-16.0); LYMPHOCYTE# 0.6 X10e3 (1.0-3.5); MEAN CELL VOLUME 85.8 FL (83-96); MEAN CORPUSCULAR HGB CONC 31.5 g/dL (30-36); MEAN PLATELET VOLUME 9.4 FL (6.5-11.5); MONOCYTE# 0.2 X10e3 (0-1.0); MONOCYTE% 4.2 % (3.0-12.0); NEUTROPHIL% 82.7 % (40-75); PLATELET COUNT 51 X10e3 (140-420); RED BLOOD COUNT 3.98 X10e (3.90-5.30); RED CELL DISTRIBUTION WIDTH 18.2 % (11.0-15.5); WHITE BLOOD COUNT 4.9 X10e3 (4.0-10.5)
[2016-04-27 06:56] LABS: DIFF IND NO
[2016-04-27 07:24] LABS: BUN/CREATININE RATIO 13.82; CALCIUM SERUM 9.7 mg/dL (8.4-10.2); CREATININE SERUM 3.4 mg/dL (0.6-1.4); GLOM FILT RATE Estimated 17.5 mL/min (>60)
[2016-04-27 07:26] LABS: POTASSIUM 5.8 mmol/L (3.5-5.1)
[2016-04-27 09:37] LABS: ARTERIAL BLD GAS O2 SATURATION 87.6 % (90.0-100.0); ARTERIAL BLOOD GAS ALLEN TEST NORMAL; ARTERIAL BLOOD GAS ART SITE RIGHT RADIAL; ARTERIAL BLOOD GAS CARBOXY HB 0.9 %sat (0.0-9.0); ARTERIAL BLOOD GAS DELIVERY NASAL CANNULA; ARTERIAL BLOOD GAS HCO3 20.6 mmol/L; ARTERIAL BLOOD GAS MET HB 0.6 %sat (0.0-2.0); ARTERIAL BLOOD GAS PCO2 43.4 mmHg (35.0-45.0); ARTERIAL BLOOD GAS PO2 64.8 mmHg (80.0-100); ARTERIAL BLOOD GAS pH 7.285 (7.350-7.450); ARTERIAL DRAW? YES
[2016-04-27 11:35] LABS: PHOSPHOROUS 6.1 mg/dL (2.5-4.6); URIC ACID 11.5 mg/dL (2.6-7.2)
[2016-04-27 13:45] LABS: URINE APPEARANCE CLEAR; URINE BILIRUBIN NEG (NEG); URINE BLOOD 2+ (NEG); URINE COLOR YELLOW; URINE GLUCOSE NEG (NEG); URINE KETONE NEG (NEG); URINE LEUKOCYTE ESTERASE 2+ (NEG); URINE NITRATE NEG (NEG); URINE PROTEIN 1+ (NEG); URINE SPECIFIC GRAVITY 1.011 (1.003-1.035)
[2016-04-27 13:48] LABS: URBCS1 AUWI 100-200 /[HPF] (0-2); URINE BACTERIA AUWI 2+ (NEGATIVE); URINE SQUAMOUS EPITHELIAL CELL OCC /[HPF]
[2016-04-27 14:03] LABS: CREATININE,RANDOM URINE 49 mg/dL; POTASSIUM,URINE RANDOM 29 mmol/L; SODIUM URINE RANDOM 86 mmol/L
[2016-04-27 14:43] LABS: INR 1.3
[2016-04-27 15:45] LABS: OSMOLALITY,URINE 305 mOsmo/kg (250-900)
[2016-04-28 05:06] LABS: ARTERIAL BLD GAS O2 SATURATION 94.6 % (90.0-100.0); ARTERIAL BLOOD GAS CARBOXY HB 0.6 %sat (0.0-9.0); ARTERIAL BLOOD GAS MET HB 0.6 %sat (0.0-2.0); ARTERIAL BLOOD GAS PCO2 45.3 mmHg (35.0-45.0); ARTERIAL BLOOD GAS PO2 82.7 mmHg (80.0-100); ARTERIAL BLOOD GAS pH 7.368 (7.350-7.450)
[2016-04-28 05:07] LABS: ARTERIAL BLOOD GAS ART SITE RIGHT RADIAL; ARTERIAL BLOOD GAS DELIVERY NASAL CANNULA; ARTERIAL DRAW? YES
[2016-04-28 05:28] LABS: BASOPHIL% 0.1 % (0-2.5); HEMATOCRIT 32.1 % (35.0-45.0); HEMOGLOBIN 10.3 gm/dL (12.0-16.0); LYMPHOCYTE# 0.3 X10e3 (1.0-3.5); LYMPHOCYTE% 6.1 % (17.0-45.0); MEAN CELL VOLUME 85.8 FL (83-96); MEAN CORPUSCULAR HEMOGLOBIN 27.4 PG (28-34); MEAN PLATELET VOLUME 9.4 FL (6.5-11.5); MONOCYTE# 0.3 X10e3 (0-1.0); MONOCYTE% 5.6 % (3.0-12.0); NEUTROPHIL# 4.9 X10e3 (1.5-7.1); NEUTROPHIL% 88.2 % (40-75); RED BLOOD COUNT 3.74 X10e (3.90-5.30); RED CELL DISTRIBUTION WIDTH 18.2 % (11.0-15.5); WHITE BLOOD COUNT 5.6 X10e3 (4.0-10.5)
[2016-04-28 05:36] LABS: DIFF IND NO; PLATELET COUNT 40 X10e3 (140-420)
[2016-04-28 07:34] LABS: ALBUMIN SERUM 3.3 g/dL (3.5-5.0); BILIRUBIN,TOTAL 0.6 mg/dL (0.2-2.0); BUN/CREATININE RATIO 18.92; CALCIUM SERUM 9.1 mg/dL (8.4-10.2); CREATININE SERUM 2.8 mg/dL (0.6-1.4); GLOM FILT RATE Estimated 21.9 mL/min (>60); PHOSPHOROUS 5.3 mg/dL (2.5-4.6); PROTEIN TOTAL SERUM 6.2 g/dL (6.0-8.3)
[2016-04-28 07:57] LABS: INR 1.4; PROTHROMBIN TIME (PATIENT) 14.4 SECONDS (9.6-11.5)
[2016-04-29 06:02] LABS: BASOPHIL% 0.3 % (0-2.5); EOSINOPHIL% 0.1 % (0.0-7.0); HEMATOCRIT 33.2 % (35.0-45.0); HEMOGLOBIN 10.6 gm/dL (12.0-16.0); LYMPHOCYTE# 0.3 X10e3 (1.0-3.5); LYMPHOCYTE% 4.3 % (17.0-45.0); MEAN CELL VOLUME 84.9 FL (83-96); MEAN CORPUSCULAR HEMOGLOBIN 27.1 PG (28-34); MEAN PLATELET VOLUME 9.2 FL (6.5-11.5); MONOCYTE# 0.6 X10e3 (0-1.0); MONOCYTE% 7.9 % (3.0-12.0); NEUTROPHIL# 6.2 X10e3 (1.5-7.1); NEUTROPHIL% 87.4 % (40-75); RED BLOOD COUNT 3.92 X10e (3.90-5.30); RED CELL DISTRIBUTION WIDTH 18.2 % (11.0-15.5); WHITE BLOOD COUNT 7.1 X10e3 (4.0-10.5)
[2016-04-29 06:08] LABS: DIFF IND NO; PLATELET COUNT 34 X10e3 (140-420)
[2016-04-29 06:40] LABS: ALBUMIN SERUM 3.5 g/dL (3.5-5.0); BILIRUBIN,TOTAL 0.6 mg/dL (0.2-2.0); BUN/CREATININE RATIO 22.22; CALCIUM SERUM 9.1 mg/dL (8.4-10.2); CREATININE SERUM 2.7 mg/dL (0.6-1.4); GLOM FILT RATE Estimated 22.8 mL/min (>60); POTASSIUM 3.6 mmol/L (3.5-5.1); PROTEIN TOTAL SERUM 6.7 g/dL (6.0-8.3)
[2016-04-30 05:40] LABS: HEMOGLOBIN 10.6 gm/dL (12.0-16.0); MEAN CELL VOLUME 84.4 FL (83-96); MEAN PLATELET VOLUME 9.7 FL (6.5-11.5); RED BLOOD COUNT 3.91 X10e (3.90-5.30); RED CELL DISTRIBUTION WIDTH 18.3 % (11.0-15.5); WHITE BLOOD COUNT 6.3 X10e3 (4.0-10.5)
[2016-04-30 06:21] LABS: BUN/CREATININE RATIO 26.36; CALCIUM SERUM 9.7 mg/dL (8.4-10.2); CREATININE SERUM 2.2 mg/dL (0.6-1.4); GLOM FILT RATE Estimated 28.9 mL/min (>60); MAGNESIUM 2.1 mg/dL (1.6-3.0); POTASSIUM 3.4 mmol/L (3.5-5.1)
[2016-05-01 08:34] LABS: BUN/CREATININE RATIO 27.61; CALCIUM SERUM 10.2 mg/dL (8.4-10.2); CREATININE SERUM 2.1 mg/dL (0.6-1.4); GLOM FILT RATE Estimated 30.5 mL/min (>60); POTASSIUM 3.9 mmol/L (3.5-5.1)
[2016-05-01 10:54] LABS: ALBUMIN SERUM 3.5 g/dL (3.5-5.0); BILIRUBIN, DIRECT 0.2 mg/dL (0.0-0.2); BILIRUBIN,INDIRECT 0.7 mg/dL (0.0-0.9); BILIRUBIN,TOTAL 0.9 mg/dL (0.2-2.0); PROTEIN TOTAL SERUM 6.6 g/dL (6.0-8.3)
[2016-05-02 05:25] LABS: HEMATOCRIT 34.8 % (35.0-45.0); HEMOGLOBIN 11.3 gm/dL (12.0-16.0); MEAN CELL VOLUME 84.2 FL (83-96); MEAN CORPUSCULAR HEMOGLOBIN 27.3 PG (28-34); MEAN CORPUSCULAR HGB CONC 32.4 g/dL (30-36); MEAN PLATELET VOLUME 9.2 FL (6.5-11.5); RED BLOOD COUNT 4.13 X10e (3.90-5.30); RED CELL DISTRIBUTION WIDTH 18.3 % (11.0-15.5)
[2016-05-02 05:27] LABS: WHITE BLOOD COUNT 9.9 X10e3 (4.0-10.5)
[2016-05-02 06:21] LABS: CALCIUM SERUM 10.5 mg/dL (8.4-10.2); GLOM FILT RATE Estimated 32.3 mL/min (>60); POTASSIUM 3.7 mmol/L (3.5-5.1)
[2016-05-02] MEDS ORDERED: SYMBICORT INH (18:16)
[2016-05-02] MEDS ORDERED: PREDNISONE PO (18:17)
[2016-05-02] MEDS ORDERED: JANUVIA50 MG PO (18:18)
[2016-05-02] MEDS ORDERED: AMLODIPINE BESY10 MG PO (18:19)
[2016-05-02] MEDS ORDERED: OMNICEF300 M1 PO (18:20)
[2016-05-02] MEDS ORDERED: METOLAZONE5 MG PO (18:21)
[2016-05-02] MEDS ORDERED: BUMEX2 MG PO (18:21)
[2016-05-02] MEDS ORDERED: LEVEMIR100 UNITS/ SUBQ (18:29)
[2016-05-02] MEDS ORDERED: NOVOLOG100 UNITS/ SUBQ (18:30)
[2016-05-02] MEDS ORDERED: ZYLOPRIM PO (18:30)
[2016-05-02] MEDS ORDERED: ASPIRIN81 MG PO (18:31)
[2016-06-22] MEDS ORDERED: ASPIRIN FREE325 MG PO (16:52)
[2016-06-22] MEDS ORDERED: TYLENOL WITH C1 EACH PO (16:54)
[2016-06-22] MEDS ORDERED: AMLODIPINE BESY10 MG PO (16:55)
[2016-06-22] MEDS ORDERED: ZYLOPRIM100 MG PO (16:55)
[2016-06-22] MEDS ORDERED: ATORVASTATIN CA40 MG PO (16:56)
[2016-06-22] MEDS ORDERED: ASPIRIN81 MG PO (16:56)
[2016-06-22] MEDS ORDERED: BREO ELLIPTA 21 EACH INH (16:56)
[2016-06-22] MEDS ORDERED: CEFDINIR300 MG PO (16:57)
[2016-06-22] MEDS ORDERED: EZETIMIBE10 MG PO (16:57)
[2016-06-22] MEDS ORDERED: BUMEX2 MG PO (16:57)
[2016-06-22] MEDS ORDERED: MUCUS RELIEF600 M1 PO (16:58)
[2016-06-22] MEDS ORDERED: GLUCOTROL10 MG PO (16:58)
[2016-06-22] MEDS ORDERED: HYDRALAZINE HC100 MG PO (16:58)
[2016-06-22] MEDS ORDERED: JANUVIA50 MG PO (16:59)
[2016-06-22] MEDS ORDERED: ISOSORBIDE DINI30 MG PO (16:59)
[2016-06-22] MEDS ORDERED: LEVEMIR100 UNITS/ SUBQ (17:00)
[2016-06-22] MEDS ORDERED: COZAAR25 MG PO (17:00)
[2016-06-22] MEDS ORDERED: METOLAZONE5 MG PO (17:00)
[2016-06-22] MEDS ORDERED: PHENERGAN PO (17:01)
[2016-06-22] MEDS ORDERED: NOVOLOG100 UNIT/1 (17:01)
[2016-06-22] MEDS ORDERED: SYMBICORT INH (17:01)
== END 2016-05-02 20:14 | disposition home health service (06) | DRG 280 ==
LOC: CED 16:54 → CEDOF 18:35 → C5C 21:19 → CICCU2 04-27 11:05 → C3A PCU 04-28 10:09
PROVIDERS: Emergency Medicine; Internal Medicine; Internal Medicine Cardiovascular Disease; Internal Medicine Nephrology
PROC: 02HV33Z Insertion of Infusion Device into Superior Vena Cava, Percutaneous Approach (ICD-10-PCS; principal; 2016-04-27)
PROC: B548ZZA Ultrasonography of Superior Vena Cava, Guidance (ICD-10-PCS; 2016-04-27)
DX: I21.4 Non-ST elevation (NSTEMI) myocardial infarction (principal); I50.33 Acute on chronic diastolic (congestive) heart failure; J96.21 Acute and chronic respiratory failure with hypoxia; A41.9 Sepsis, unspecified organism; N17.9 Acute kidney failure, unspecified; E87.2 Acidosis; E11.22 Type 2 diabetes mellitus with diabetic chronic kidney disease; D69.6 Thrombocytopenia, unspecified; E87.1 Hypo-osmolality and hyponatremia; J44.1 Chronic obstructive pulmonary disease with (acute) exacerbation; N39.0 Urinary tract infection, site not specified; I12.9 Hypertensive chronic kidney disease with stage 1 through stage 4 chronic kidney disease, or unspecified chronic kidney disease; N18.9 Chronic kidney disease, unspecified; R74.0 Nonspecific elevation of levels of transaminase and lactic acid dehydrogenase [LDH]; B96.20 Unspecified Escherichia coli [E. coli] as the cause of diseases classified elsewhere; Z79.82 Long term (current) use of aspirin; Z79.01 Long term (current) use of anticoagulants; I73.9 Peripheral vascular disease, unspecified; Z87.891 Personal history of nicotine dependence; K76.1 Chronic passive congestion of liver; E87.5 Hyperkalemia; E87.6 Hypokalemia
CPT/HCPCS: 36415; 36600; 71010; 76770; 78582; 80048; 80053; 80076; 81003; 82010; 82436; 82533; 82550; 82570; 82803; 82947; 83036; 83605; 83735; 83880; 83935; 84100; 84132; 84133; 84300; 84443; 84484; 84550; 85025; 85027; 85379; 85384; 85610; 87040; 87086; 87088; 87186; 89190; 93005; 93306; 93970; 94640; 94664; 94760; 97116; 97163; 97166; 97535; 99285; A9540; A9567; C9113; G8978-GP; G8979-GP; J0696; J1815; J1956; J2920; J2930; J3370

== ENCOUNTER 2016-06-22 17:01 | Inpatient (IN) | payer MEDICARE ==
--- NOTE | ~2016-06-22 | CT4 ---
[facility] A Service of [facility] RADIOLOGY TEXT RESULTS PATIENT: NOHEMY HOPKINS LOCATION: [facility] : 52 UNIT #: [id number] AGE: [address]: Tena Bearden MD SEX: F ORDER DR: [id number] [facility] [address] [place], [place] [address] [id number] I MR#: [id number] Acc #: [id number] NAME: NOHEMY HOPKINS : 1950 SEX: F STUDY DATE/TIME: 06/29/2016 18:21 UNIT: [facility] ROOM: 575 STUDY DESCRIPTION: CT Abd and Pelv Wo Cont Attending Physician: Tena Bearden M.D. Ordering Physician: Tena Bearden M.D. Primary Care Physician: No Primary Care Physician MEDICAL IMAGING REPORT This report is preliminary unless electronic signature is present EXAM Abdomen and pelvis CT without contrast HISTORY Vomiting for the past 2 days. 60 pound weight loss since January. Abdominal pain over the past 11 days. TECHNIQUE Axial images were obtained with oral contrast only and compared to a previous scan from 06/22/2016. This CT exam was performed with one or more of the following radiation dose reduction techniques: automatic control, adjustment of mA and/or kV according to patient size, and iterative reconstruction. FINDINGS Linear scarring at both lung bases is again noted and unchanged. In the abdomen the liver, spleen and pancreas are normal in size. The kidneys and adrenals are unchanged from the recent scan. No distended bowel loops are seen. There is no evidence of retroperitoneal adenopathy or ascites. Ingested oral contrast is into the colon. Stool burden has decreased since the previous exam. IMPRESSION Decreased stool burden since the previous exam. No evidence of bowel obstruction. No acute or inflammatory changes are seen. Dictated by... Andrew Ruiz M.D. THIS IS AN ELECTRONICALLY VERIFIED REPORT Andrew Ruiz M.D. at 06/29/2016 10:20 PM RLF/brennan [facility] A Service of [facility] RADIOLOGY TEXT RESULTS PATIENT: NOHEMY HOPKINS LOCATION: [facility] : 51 UNIT #: [id number] AGE: [address]: Tena Bearden MD SEX: F ORDER DR: TD: 06/29/2016 19:14 JOB #: [id number] MEDICAL IMAGING REPORT Page 1 of 1 COPY
--- NOTE | ~2016-06-22 | CO ---
Unit #: [id number] #: [id number] Patient: NOHEMY HOPKINS [id number] [facility]. [place], [place] [address] [id number] Dagmar MR#: [id number] NAME: NOHEMY HOPKINS ROOM: [facility] Age: 66 Sex: F Admission Date: 06/22/2016 : 1950 Attending Physician: Tena Bearden M.D. Primary Care Physician: No Primary Care Physician CONSULTATION REPORT I was called STAT to 5B, 5C and a CODE STROKE was called at that time. The family noted that the patient, while ambulating from the bathroom, became a little bit confused with slurred speech and a right lower facial droop. When I arrived, the patient denied pain. VITAL SIGNS: Her blood pressure was 172/96, O2 saturation 100%, pulse 88 and Acc-Chek was 170. HEENT: Eyes: PERRLA. Extraocular muscles are intact. Pharynx benign. Slight right lower facial droop. CHEST: Clear. CARDIAC: Normal S1, S2 without murmur. ABDOMEN: Bowel sounds were present. The patient had mild generalized abdominal tenderness without rebound or guarding. EXTREMITIES: Without edema. NEUROLOGIC: The patient had some slight difficulty with food finding but she was alert and oriented x3. Cranial nerves revealed a slight right lower facial droop. She had generalized weakness throughout but without a definite pronator drift. DIAGNOSTIC STUDIES LABORATORY: Hematocrit 31.5, normal white count, platelet count. INR one. PTT 34.5. SMA-12: Glucose 171, sodium 132, chloride 97, albumin 3. Troponin 1.34 up from 0.29 four days ago. IMAGING: Head CT shows a small subarachnoid bleed left frontal region. CARDIOVASCULAR: EKG: Sinus rhythm, rate 90 with a bifascicular block including left anterior fascicular block, right bundle branch block and some nonspecific ST-T wave abnormalities. Qs noted inferiorly. This does not look to be changed from an EKG that I am looking at 06/25/2016. The patient was immediately started on a Cardene drip as second blood pressure was 185/77. I talked with pharmacy and although her last dose of Lovenox was over 12 hours ago, we are still giving her a small dose of protamine 40 mg IV times one. I then called the access center and I have spoken with [facility] neurosurgical group who are accepting the patient to [facility] intensive care unit. It will be Dr. Mullins who is the accepting physician. I have discussed this in detail with the daughter who was present. Dictated by... Eve Rea M.D. Unit #: [id number] #: [id number] Patient: NOHEMY HOPIKNS AML/bd TD: 06/30/2016 06:29 JOB #: [id number] CONSULTATION REPORT Page 1 of 1 X Eve Rea MD X CONSULTATION REPORT
--- NOTE | ~2016-06-22 | CR72 ---
[facility] A Service of [facility] RADIOLOGY TEXT RESULTS PATIENT: NOHEMY HOPKINS LOCATION: [facility] 575-01 : 51 UNIT #: [id number] AGE: [address]: Tena Bearden MD SEX: F ORDER DR: [id number] [facility] [address] [facility]. [place], [place] [address] [id number] I MR#: [id number] Acc #: [id number] NAME: NOHEMY HOPKINS : 1950 SEX: F STUDY DATE/TIME: 06/26/2016 12:58 UNIT: [facility] ROOM: [facility] STUDY DESCRIPTION: CR Chest Single View Portable Attending Physician: Tena Bearden M.D. Ordering Physician: Physician Non-Staff Primary Care Physician: No Primary Care Physician MEDICAL IMAGING REPORT This report is preliminary unless electronic signature is present EXAM Portable chest, 06/26/2016. HISTORY Shortness of air for one day. COMPARISON STUDIES 06/22/2016 FINDINGS A portable view of the chest was obtained. Mild cardiomegaly is stable. The lungs are clear and the bones are normal. IMPRESSION Stable mild cardiomegaly and no active disease. Dictated by... Shubham Puckett M.D. THIS IS AN ELECTRONICALLY VERIFIED REPORT Shubham Puckett M.D. at 06/27/2016 6:08 AM GLORIA/camila TD: 06/26/2016 15:47 JOB #: [id number] MEDICAL IMAGING REPORT Page 1 of 1 COPY
--- NOTE | ~2016-06-22 | CT71 ---
[facility] A Service of [facility] RADIOLOGY TEXT RESULTS PATIENT: NOHEMY HOPKINS LOCATION: [facility]07 : 52 UNIT #: [id number] AGE: [address]: Tena Bearden MD SEX: F ORDER DR: [id number] [facility] [address] [facility]. [place], [place] [address] [id number] I MR#: [id number] Acc #: [id number] NAME: NOHEMY HOPKINS : 1950 SEX: F STUDY DATE/TIME: 06/29/2016 21:23 UNIT: [facility] ROOM: 575 STUDY DESCRIPTION: CT Head Wo Contrast Attending Physician: Tena Bearden M.D. Ordering Physician: Eve Rea M.D. Primary Care Physician: No Primary Care Physician MEDICAL IMAGING REPORT This report is preliminary unless electronic signature is present EXAM Head CT without contrast. HISTORY Sudden onset of lethargy and right facial droop today. TECHNIQUE Axial images were obtained without contrast. This CT exam was performed with one or more of the following radiation dose reduction techniques: automatic exposure control, adjustment of mA and/or kV according to patient size, and iterative reconstruction. FINDINGS Mild generalized atrophy is seen. Chronic-appearing infarcts are noted in the left cerebellum, and left frontal lobe adjacent to the caudate nucleus. There is an acute hemorrhage seen in the left frontal white matter extending out to the cortical surface into the subarachnoid space. There is no appreciable mass effect. No subdural blood is seen. IMPRESSION 1. Acute subarachnoid hemorrhage with intraparenchymal extension in the left frontal lobe. The intraparenchymal extension is small measuring about 1 cm in diameter. There is no appreciable mass effect as a result of the hemorrhage. No intraventricular extension is seen. 2. Chronic ischemic changes left caudate nucleus head and left cerebellum accompanied by mild atrophy. Findings conveyed by telephone to Dr. Rea at the time of this dictation. STAT * RESULT [facility] A Service of [facility] & [facility] RADIOLOGY TEXT RESULTS PATIENT: NOHEMY HOPKINS LOCATION: [facility]- : 51 UNIT #: [id number] AGE: [address]: Tena Bearden MD SEX: F ORDER DR: Dictated by... Andrew Ruiz M.D. THIS IS AN ELECTRONICALLY VERIFIED REPORT Andrew Ruiz M.D. at 06/29/2016 10:20 PM KATERYNA/carrol TD: 06/29/2016 21:40 JOB #: [id number] MEDICAL IMAGING REPORT Page 1 of 1 COPY
--- NOTE | ~2016-06-22 | TH ---
Unit #: [id number] #: [id number] Patient: NOEHMY HOPKINS [id number] [address] [id number] I MR#: [id number] NAME: NOHEMY HOPKINS : 1950 SEX: F STUDY DATE/TIME: 06/26/2016 UNIT: [facility] ROOM: 575 STUDY DESCRIPTION: Stress test Attending Physician: Tena Bearden M.D. Primary Care Physician: No Primary Care Physician CARDIOLOGY REPORT PROCEDURE The patient was administered 10.86 mCi of Cardiolite at rest. Images were obtained in horizontal and longitudinal, short and long axis views. The rest images show a small area of decreased tracer uptake activity involving the anteroapical and the lateral wall. The stress portion of the test was cancelled because of the patient's elevated troponin. CONCLUSION 1. This is an incomplete test. The stress portion of the test was cancelled. 2. The rest images show decreased tracer uptake activity in the anteroapical and the lateral wall. Dictated by... Santino Avila/emili TD: 06/26/2016 15:15 JOB #: [id number] CARDIOLOGY REPORT Page 1 of 1 X Mary Kay Goode MD <ELECTRONICALLY SIGNED> 09/23/16 1423 CARDIOLOGY REPORT
--- NOTE | ~2016-06-22 | EKG ---
PATIENT: NOHEMY HOPKINS UNIT #: [id number] Ventricular Rate: 81 BPM Atrial Rate: 81 BPM P-R Interval: 126 ms QRS Duration: 136 ms Q-T Interval: 442 ms QTC Calculation(Bezet): 513 ms P [place]: 64 degrees Calculated R [place]: -91 degrees Calculated T [place]: 55 degrees Diagnosis Line: Normal sinus rhythm with sinus arrhythmia Diagnosis Line: Right bundle branch block Diagnosis Line: Inferior infarct (cited on or before 28-APR-2016) Diagnosis Line: Abnormal ECG Diagnosis Line: When compared with ECG of 30-APR-2016 05:51, Diagnosis Line: T wave inversion less evident in Anterolateral Diagnosis Line: leads Diagnosis Line: Confirmed by PASCUAL MONTANA MD ([id number]) on Diagnosis Line: 06/22/2016 9:39:58 PM INTERPRETING MD: WIN
--- NOTE | ~2016-06-22 | CR72 ---
[facility] A Service of [facility] RADIOLOGY TEXT RESULTS PATIENT: NOHEMY HOPKINS LOCATION: [facility] : 52 UNIT #: [id number] AGE: [address]: Tena Bearden MD SEX: F ORDER DR: [id number] [facility] [address] [facility]. [place], [place] [address] [id number] I MR#: [id number] Acc #: [id number] NAME: NOHEMY HOPKINS : 1950 SEX: F STUDY DATE/TIME: 06/29/2016 21:35 UNIT: [facility] ROOM: 575 STUDY DESCRIPTION: CR Chest Single View Portable Attending Physician: Tena Bearden M.D. Ordering Physician: Eve Rea M.D. MEDICAL IMAGING REPORT This report is preliminary unless electronic signature is present EXAM Portable chest HISTORY Shortness of breath beginning earlier in the day. COMPARISON 06/26/2016. TECHNIQUE Single view chest was obtained. FINDINGS Cardiomegaly is unchanged from previous exam. No new infiltrates are seen. The lungs are clear. Vascular markings are normal. IMPRESSION Stable cardiomegaly. No new infiltrates are seen since the previous exam. Dictated by... Andrew Ruiz M.D. THIS IS AN ELECTRONICALLY VERIFIED REPORT Andrew Ruiz M.D. at 06/29/2016 10:23 PM RLF/pcl TD: 06/29/2016 21:53 JOB #: [id number] MEDICAL IMAGING REPORT [facility] A Service of [facility] RADIOLOGY TEXT RESULTS PATIENT: NOHEMY HOPKINS LOCATION: [facility] CICCU2-07 : 52 UNIT #: [id number] AGE: [address]: Tena Bearden MD SEX: F ORDER DR: Page 1 of 1 COPY
--- NOTE | ~2016-06-22 | CO ---
Unit #: [id number] #: [id number] Patient: NOHEMY HOPKINS [id number] [place], [place] [address] [id number] I MR#: [id number] NAME: NOHEMY HOPKINS ROOM: 575 Age: 66 Sex: F Admission Date: 06/22/2016 : 1950 Attending Physician: Tena Bearden M.D. Primary Care Physician: Estefany Primary Care Physician Requesting Physician: Lucero Ortega M.D. Consultation Date: 06/23/2016 CONSULTATION REPORT REASON FOR CONSULT Acute on chronic renal failure. Thank you very much for this consultation. HISTORY OF PRESENT ILLNESS The patient is a pleasant, 66-year-old -[place] female who has a history of CKD stage 3 followed by me in clinic. Her baseline creatinine has been around 2. She did have an admission earlier in this year in April for a non-ST elevation [place], at which time, her creatinine had run as high as 3.4 but had settled down to 2 at discharge, which is close to her baseline. She has been on diuretics in the past for history of edema. However, over the past couple of weeks, she has been complaining of abdominal pain with nausea and vomiting and significant weight loss as well as constipation for two weeks. She had presented with those complaints and was also found to have a continued slight elevation in her troponin as well as evidence of significant stool burden on CT scan. She has subsequently had a bowel movement here in the hospital and feels better. Cardiology has been consulted regarding her elevated troponin and is planning on stress test. She currently denies any chest pain. She denies any shortness of breath. She is on nasal cannula at the current time. Her vitals are stable. She denies any hematuria or dysuria. However, her urine does reflect likely urinary tract infection. She has been taking her medications as prescribed. Of note, she has not been on diuretics recently as an outpatient. She has been on Losartan for her blood pressure. PAST MEDICAL HISTORY Coronary artery disease, CKD stage 3 with baseline creatinine of around 2, hypertension, hyperlipidemia, diabetes and congestive heart failure. PAST SURGICAL HISTORY Cardiac cath with stent placement and aortobifem bypass. SOCIAL HISTORY She lives with her daughter. She is a former tobacco user. No current illicit drugs. FAMILY HISTORY Noncontributory. ALLERGIES No known drug allergies. Unit #: [id number] #: [id number] Patient: NOHEMY HOPKINS MEDICATIONS Are as per her medication reconciliation. REVIEW OF SYSTEMS A 12-system review of systems is negative except as per HPI. PHYSICAL EXAMINATION GENERAL APPEARANCE: She is a pleasant, -[place] female in no acute distress. VITAL SIGNS: Her blood pressure is 120s to 160s/50s to 80s. Heart rate 80s. Respiration 16 to 22. T-max 99.1. HEENT: Head is normocephalic, atraumatic. ENT: Pupils equal, round and reactive to light. Oropharynx is clear. NECK: Supple. No JVD. LUNGS: Clear to auscultation bilaterally with no wheezes, rhonchi or crackles. HEART: Regular rate and rhythm. No murmurs, gallops or rubs. ABDOMEN: Soft, nontender, nondistended. Positive bowel sounds. EXTREMITIES: She has no lower extremity edema. NEUROLOGIC: Cranial nerves II-XII are intact to testing. SKIN: Warm and dry. DIAGNOSTIC STUDIES LABORATORY: Sodium 131, potassium 3.9, chloride 93, bicarb 28, BUN 72, creatinine 2.1, glucose 213, calcium 9.9. White count 9.5, hemoglobin 12.7, platelets 92. Urinalysis again shows 4+ bacteria with more than 25 WBCs per high power field. IMAGING: A CT scan of the abdomen and pelvis without contrast showed some malrotation of the right kidney with no evidence of obstruction with no abnormality of the left kidney mentioned. There is extensive fecal burden seen in the colon. IMPRESSION 1. Acute kidney injury on chronic kidney disease stage 3. This is likely prerenal azotemia related to her nausea, vomiting, decreased intake and weight loss. Her baseline creatinine is around 2 and it has improved to 2.1 today. Would continue gentle IV fluids for another couple of liters. She is off diuretics at the current time and her Losartan has been held. Noted plans for a stress need. Would need IV fluids and Mucomyst if she eventually would need a cardiac catheterization. However, that will be determined dependent on the results of her stress test. Cardiology is following. 2. Hyponatremia. This is hypovolemic hyponatremia. Would continue IV fluids. 3. Hypercalcemia. This is resolved. 4. UTI on Rocephin. Follow up culture. 5. Elevated troponin with history of CAD and recent NSTEMI. Cardiology following. The patient is scheduled for a stress test. 6. Thrombocytopenia. 7. Hypertension. Blood pressure is stable. Dictated by... Roc Hercules M.D. IRMA/socorro Unit #: [id number] #: [id number] Patient: NOHEMY HOPKINS TD: 06/24/2016 12:58 JOB #: [id number] CONSULTATION REPORT Page 1 of 1 X Roc Hercules MD X CONSULTATION REPORT
--- NOTE | ~2016-06-22 | CO ---
Unit #: [id number] #: [id number] Patient: NOHEMY HOPKINS [id number] [address] [id number] I MR#: [id number] NAME: NOHEMY HOPKINS ROOM: [facility] Age: 66 Sex: F Admission Date: 06/22/2016 : 1950 Attending Physician: Tena Bearden M.D. Primary Care Physician: No Primary Care Physician CONSULTATION REPORT ADDENDUM Critical care time spent in evaluating this patient was one hour. Dictated by... Eve Rea M.D. AML/pc TD: 06/30/2016 06:41 JOB #: [id number] CONSULTATION REPORT Page 1 of 1 X Eve Rea MD X CONSULTATION REPORT
--- NOTE | ~2016-06-22 | CR72 ---
[facility] A Service of [facility] & [facility] RADIOLOGY TEXT RESULTS PATIENT: NOHEMY HOPKINS LOCATION: [facility] : 52 UNIT #: [id number] AGE: [address]: Andrew Jimenez MD SEX: F ORDER DR: [id number] [facility] [address] [place], [place] [address] [id number] MR#: [id number] Acc #: [id number] NAME: NOHEMY HOPKINS : 1950 SEX: F STUDY DATE/TIME: 06/22/2016 16:27 UNIT: [facility] ROOM: STUDY DESCRIPTION: CR Chest Single View Portable Attending Physician: Andrew Jimenez M.D. Ordering Physician: Andrew Jimenez M.D. Primary Care Physician: No Primary Care Physician MEDICAL IMAGING REPORT This report is preliminary unless electronic signature is present EXAM Frontal chest 06/22/2016 INDICATIONS 66-year-old female with shortness of air, nausea, vomiting. Symptoms a week, diabetes, heart disease. Hypertension. Frontal chest compared with 04/28/2016 FINDINGS Right-sided PICC line has been removed. The heart is enlarged but stable. There is old healed granulomatous disease. Prominence at the left atrial appendage unchanged. Vascularity is unremarkable. No dense consolidation or effusion. No pneumothorax. IMPRESSION 1. Removal of a right-sided PICC line. No pneumothorax. 2. Persistent cardiomegaly and old healed granulomatous disease. Dictated by... Fernando Scott M.D. THIS IS AN ELECTRONICALLY VERIFIED REPORT Fernando Scott M.D. at 06/22/2016 8:11 PM Meghna TD: 06/22/2016 18:33 JOB #: [id number] MEDICAL IMAGING REPORT Page 1 of 1 COPY
--- NOTE | ~2016-06-22 | CO ---
Unit #: [id number] #: [id number] Patient: NOHEMY GARCIA [id number] [address] [address] [id number] I MR#: [id number] NAME: NOHEMY GARCIA ROOM: 575 Age: 66 Sex: F Admission Date: 06/22/2016 : 1950 Attending Physician: Tena Bearden M.D. Consultation Date: 06/24/2016 CONSULTATION REPORT ADDITIONAL ATTENDING PHYSICIAN Dr. Lucero Ortega. REASON FOR CONSULTATION Constipation, nausea, vomiting, and abdominal pain. HISTORY OF PRESENT ILLNESS Ms. Garcia is a 66-year-old pleasant female. The patient appears very unwell and sick. She came in with history of nausea and vomiting and abdominal pain and constipation for 7 to 10 days. Since after admission, the patient has been given Senokot and she has had substantial bowel movement yesterday and is feeling better in that regard. She is still nauseated. Upon admission, the patient has been found to have non-ST elevation acute OH based upon enzyme elevations and is undergoing cardiac evaluation. Her abdominal pain is also a lot better today. PAST MEDICAL HISTORY Significant for history of hypertension, hyperlipidemia, type 2 diabetes, acute on chronic congestive heart failure, peripheral arterial disease, coronary artery disease, status post non-ST elevation OH. PAST SURGICAL HISTORY Included aortofemoral bypass, cardiac stent placement, and heart catheterization. MEDICATIONS At home included Levemir, Cozaar, metolazone, NovoLog, Phenergan, Glucotrol, hydralazine, isosorbide, Januvia, atorvastatin, calcium, Breo, Bumex, Zetia, aspirin, Tylenol, Zyloprim, amlodipine. ALLERGIES She has no known drug allergies. FAMILY HISTORY Significant for diabetes. None of colon, pancreatic cancer, or liver disease. SOCIAL HISTORY The patient lives at home with her daughter. She quit smoking about 6 years ago and does not drink alcohol. REVIEW OF SYSTEMS Unit #: [id number] #: [id number] Patient: NOHEMY GARCIA Detailed review of organ systems does not reveal any recent weight loss. No history of fever, chills, or rigors. No history of headache, seizures, chest pain, or syncope. No history of cough, expectoration, or hemoptysis. No history of dysuria, hematuria, or pyuria. No history of focal seizures or extremity weakness. PHYSICAL EXAMINATION GENERAL: She appears rundown and appears quite unwell. VITAL SIGNS: Indicate a temperature of 98.3, pulse 72 per minute and regular, respiratory rate is 18, blood pressure is 141/48. She weighs 187 pounds, baseline weight is about 244 pounds until about a month ago. CARDIOVASCULAR: Confirms normal heart sounds on auscultation. LUNGS: Reveal bilateral diminished symmetric air entry. ABDOMEN: Soft, obese, and diffusely is nontender. Liver and spleen are not palpable. Bowel sounds normal. EXTREMITIES: The patient does have grade 1 pitting peripheral edema. DIAGNOSTIC STUDIES LABORATORY RESULTS: Shows an INR of 1.4. Serum chemistry shows a BUN and creatinine of 85 and 2.3 with a declining trend. The serum sodium is 132, potassium 4.0, troponin is 0.51 with a percentage MB fraction of 4.6. CBC shows a hemoglobin of 11, platelet count of 100, and white count of 11,000. IMAGING STUDIES: CT of the abdomen and pelvis was done without contrast and shows extensive fecal loading. CLINICAL IMPRESSION The patient with constipation, fecal loading, and significant colonic inertia. She has already started moved her bowels yesterday with Senokot and we will add MiraLAX and Amitiza to the regimen. The patient will be followed over the next couple of days. There is little reason for her to have any colonoscopy or GI evaluation in view of the fact the patient is undergoing cardiac evaluation, because of the non-ST elevation myocardial infarction. A colonoscopy is therefore contraindicated. Thank you very much for asking me to see this pleasant woman. I appreciate the consult. Dictated by... Santino Foote/chanell TD: 06/25/2016 00:08 JOB #: [id number] Rhonda LainezPDellaRFelton. Unit #: [id number] #: [id number] Patient: NOHEMY GARCIA CONSULTATION REPORT Page 1 of 1 X Kwame Navarrete MD CONSULTATION REPORT
--- NOTE | ~2016-06-22 | DS ---
Unit #: [id number] #: [id number] Patient: NOHEMY HOPKINS [id number] [address] [place], [place] [address] [id number] I MR#: [id number] NAME: NOHEMY HOPKINS ROOM: [facility] Age: 66 Sex: F Admission Date: 06/22/2016 : 1950 Discharge Date: 06/30/2016 Attending Physician: Tena Bearden M.D. Primary Care Physician: No Primary Care Physician DISCHARGE SUMMARY PLACE OF TRANSFER [facility] [place] [facility] neurology ICU. HISTORY OF PRESENT ILLNESS/HOSPITAL COURSE Patient, 66-year-old female, originally admitted secondary to abdominal pain, inability to keep p.o. down. Please see H and P for details. Initial laboratory studies yielded an elevated troponin consistent with NSTEMI. She was admitted for acute kidney injury, NSTEMI, as well as persistent abdominal pain and/or constipation. Consultation was placed to Dr. Mckeon and associates for evaluation in regard to the patient's NSTEMI. Initially plans were made for possible consideration into Cardiolite stress test evaluation; however, secondary to deconditioning, as well as rise in troponin levels, discussion was subsequently started for possible cardiac catheterization, and medical management was advised. Blood cultures were drawn. One out of two was positive for Enterococcus. Subsequently consultation was placed to ID service. Continued to follow the patient through her hospital course. Urine culture ultimately revealed E-coli, and she was appropriately treated while she was here. Renal/nephrology service was also consulted secondary to acute kidney injury. Through her hospital course she received a heparin drip secondary to NSTEMI. ID service continued to follow for antibiotic management. Nephrology service continued to follow for acute kidney injury. Cardiology service stated the patient likely would be stable on medical management secondary to her associated comorbid conditions. They elected and stated that patient could be discharged with appropriate medical management and close outpatient followup. Secondary to chronic deconditioning, we placed consultation to PT/OT. Both services recommended subacute rehab. While we continued to wait for subacute rehab bed to become available, ID service recommended IV ampicillin for an additional 9 days at time of discharge. Unfortunately, patient began declining. On 06/29/2016 at approximately 9 o'clock patient returned from the bathroom. Family noted that her speech was very slurred, facial droop. Code stroke was subsequently called. CT Unit #: [id number] #: [id number] Patient: NOHEMY HOPKINS head was performed, which raised the possibility of a small intracranial/parenchyma hemorrhage. Therefore, Dr. Rea discussed case with neurology team at [facility] [place] [facility], and subsequently patient was transferred to [facility] [place] [facility] neurology ICU for ongoing care. CURRENT CLINICAL DIAGNOSES AT TIME OF DISCHARGE 1. Acute cerebrovascular accident/small subarachnoid bleed left frontal area. 2. Mental status change. 3. Slurred speech/facial droop. 4. Non-ST elevation myocardial infarction. 5. Acute kidney injury, on chronic kidney disease. 6. Morbid obesity. 7. Coronary artery disease. 8. Diabetes. 9. Chronic immobility syndrome. 10. Constipation on admission. 11. Urinary tract infection, Escherichia coli. 12. Enterococcus/methicillin-sensitive Staphylococcus aureus bacteremia. 13. Peripheral arterial disease history. 14. Failure to thrive. 15. Hyperlipidemia. FINAL DISCHARGE DISPOSITION [facility] for ongoing care. Dictated by... Tena Bearden M.D. JUAN/emili TD: 07/19/2016 12:26 JOB #: [id number] DISCHARGE SUMMARY Page 1 of 1 X Tena Bearden MD X DISCHARGE SUMMARY
--- NOTE | ~2016-06-22 | EKG ---
PATIENT: NOHEMY HOPKINS UNIT #: [id number] Ventricular Rate: 81 BPM Atrial Rate: 81 BPM P-R Interval: 118 ms QRS Duration: 134 ms Q-T Interval: 418 ms QTC Calculation(Bezet): 485 ms P [place]: 47 degrees Calculated R [place]: -82 degrees Calculated T [place]: 7 degrees Diagnosis Line: Normal sinus rhythm with sinus arrhythmia Diagnosis Line: Left axis deviation Diagnosis Line: Right bundle branch block Diagnosis Line: Inferior infarct (cited on or before 28-APR-2016) Diagnosis Line: Abnormal ECG Diagnosis Line: When compared with ECG of 24-JUN-2016 06:23, Diagnosis Line: No significant change was found Diagnosis Line: Confirmed by PASCUAL MONTANA MD ([id number]) on Diagnosis Line: 06/25/2016 12:53:24 PM INTERPRETING MD: WIN
--- NOTE | ~2016-06-22 | EKG ---
PATIENT: NOHEMY HOPKINS UNIT #: [id number] Ventricular Rate: 72 BPM Atrial Rate: 72 BPM P-R Interval: 128 ms QRS Duration: 134 ms Q-T Interval: 464 ms QTC Calculation(Bezet): 508 ms P [place]: 83 degrees Calculated R [place]: -84 degrees Calculated T [place]: 42 degrees Diagnosis Line: Normal sinus rhythm Diagnosis Line: Left axis deviation Diagnosis Line: Right bundle branch block Diagnosis Line: Inferior infarct (cited on or before 28-APR-2016) Diagnosis Line: Abnormal ECG Diagnosis Line: When compared with ECG of 22-JUN-2016 16:30, Diagnosis Line: Borderline criteria for Lateral infarct are no Diagnosis Line: longer Present Diagnosis Line: Questionable change in initial forces of Inferior Diagnosis Line: leads Diagnosis Line: Confirmed by AMY WASHINGTON MD ([id number]) on 06/24/2016 Diagnosis Line: 6:35:41 PM INTERPRETING MD: FELIX ASHLEY
--- NOTE | ~2016-06-22 | CO ---
Unit #: [id number] #: [id number] Patient: NOHEMY GARCIA [id number] [address] [address] [id number] I MR#: [id number] NAME: NOHEMY GARCIA ROOM: 575 Age: 66 Sex: F Admission Date: 06/22/2016 : 1950 Attending Physician: Tena Bearden M.D. Primary Care Physician: No Primary Care Physician Consultation Date: 06/23/2016 CONSULTATION REPORT REASON FOR CONSULTATION Elevated troponin. HISTORY OF PRESENT ILLNESS This is a 66-year-old -Hung[place] female who is known to Dr. Goode, had a previous NE and multiple stents in the past and her last cardiac cath was in 2013 where she was found to have a 99% instent stenosis in the RCA and had a PCI and stent placed. Her ejection fraction at that time was 60%. The patient since that time has had, in 2015, a Lexiscan Cardiolite stress test. It did show an abnormal fixed area of inferolateral wall but no ischemia. Also, the patient has hypertension, diabetes, hyperlipidemia, chronic kidney disease, EF of 50 to 55%, COPD, wears continuous home oxygen. The patient came into the hospital for abdominal pain and constipation. She also did complain of having some nausea and vomiting at one time which was nonbloody. The patient had been in the hospital about a month ago with an acute non-ST elevated NE and also acute on chronic diastolic congestive heart failure and with patient's acute on chronic kidney disease and also had at that time an E. coli UTI. Also, she had some congestive heart failure which was treated and optimized the patient's medication. The patient was treated with medical management for the non-STEMI. The patient states since that time she has been doing fairly well. No complaints of chest pain, palpitations or dizziness. No increased lower extremity edema. She said she came in for the nausea and occasional vomiting and abdominal pain. The patient admits to not having a bowel movement for about a week and she has decreased appetite. The patient denies shortness of breath, palpitations, dizziness, presyncope, syncope but no increased lower extremity edema. The patient denies paroxysmal nocturnal dyspnea or orthopnea. In the emergency room, the patient's blood pressure was 156/100, heart rate 85, respirations 24, temperature 100, O2 sat 94% on room air. The patient was given a liter of normal saline, given Mylanta and CT of the abdomen showed extensive cecal burden throughout the colon. No convincing evidence of mechanical small bowel obstruction. Chest x-ray showed persistent cardiomegaly and old healed granulomatous disease. EKG shows normal sinus rhythm with a right bundle branch, which, looking back on previous EKGs, is not new. The patient's BUN is 72 with creatinine 2.1, sodium 131. Patient's initial cardiac enzymes show CK MB 1.1 with troponin 0.16 and later troponin 0.19 and 0.049. The patient was started on a heparin drip, low intensity, given MiraLax. The patient, since admission, has had a bowel movement and her abdominal pain has eased off but Cardiology has been consulted to assist with evaluation and management. PAST MEDICAL HISTORY Unit #: [id number] #: [id number] Patient: NOHEMY GARCIA 1. Coronary artery disease, history of myocardial infarction and history of status post multiple stents that were placed in the second PDA branch of the RCA and the left circumflex. 2. The last cardiac cath, 2013, revealed a 99% instent stenosis of the RCA and a second PDA branch status post PCI and drug-eluting stent placed. LVEF was 60%. Left main normal. The LAD, the first diagonal, was a 70% mid stenosis. Left circumflex patent stent and the RCA patent stent. 3. A 2016 Lexiscan was abnormal fixed area of inferolateral wall. LVEF was 60%. 4. Peripheral vascular disease. 5. Hypertension. 6. Diabetes mellitus type 2. 7. Hyperlipidemia. 8. Chronic kidney disease. 9. History of diastolic congestive heart failure. 10. COPD, wears continuous home O2. 11. A 04/2016 2-D echo. LFEVF of 50 to 55% with moderate to severe pulmonic regurgitation, mild to moderate mitral stenosis and moderate tricuspid regurgitation. 12. Reformed smoker. PAST SURGICAL HISTORY 1. Status post PCI and stents to the second PDA branch of the RCA and left circumflex. 2. Arterial bifemoral bypass. 3. . 4. Tubal ligation. SOCIAL HISTORY The patient lives with her son and granddaughter. She gets around some in the kitchen and living room but does not do any exertional activity. No alcohol or illicit drug abuse. FAMILY HISTORY Noncontributory. HOME MEDICATIONS 1. Glucotrol 10 mg p.o. twice daily. 2. 'Mucous' [sic] one tablet p.o. twice daily. 3. Hydralazine 100 mg p.o. three times daily. 4. Isosorbide 30 mg p.o. twice daily. 5. Januvia 50 mg p.o. daily. 6. Atorvastatin 40 mg p.o. at bedtime. 7. Breo Ellipta one puff inhalation daily. 8. Bumex 2 mg p.o. twice daily. 9. Cefdinir 300 mg p.o. daily. 10. Ezetimibe one tablet p.o. at bedtime. 11. Aspirin 325 mg one tablet every four to six hours. 12. Tylenol with Codeine one tablet p.o. twice daily. 13. Zyloprim 1.5 mg p.o. daily. 14. Amlodipine 10 mg p.o. daily. 15. Aspirin 81 mg p.o. at bedtime. 16. Symbicort 160/4.5 mcg one puff inhalation twice daily. 17. Ventolin two puffs inhalation every four to six hours p.r.n. 18. Vitamin D 1,000 units p.o. daily. REVIEW OF SYSTEMS Unit #: [id number] #: [id number] Patient: NOHEMY GARCIA See details in HPI. PHYSICAL EXAMINATION GENERAL APPEARANCE: Ms. Garcia is a 66-year-old -Hungarian female in no acute respiratory distress. She is awake, alert, oriented. VITAL SIGNS: Blood pressure is now 125/54. Heart rate 80. Respirations 18. Temperature 98.8. O2 sats 98% on two liters. NECK: Trachea midline. No thyromegaly or lymphadenopathy. Normal carotid upstrokes. No jugular venous distention. HEART: S1, S2. Regular rate and rhythm. No clicks, murmurs or rubs. LUNGS: Diminished but few faint scattered rhonchi in bases. ABDOMEN: Soft, nontender. Positive bowel sounds present. No hepatosplenomegaly. EXTREMITIES: Pedal pulses are palpable. No pedal edema. DIAGNOSTIC STUDIES LABORATORY: Today's labs: Glucose 213, BUN 72, creatinine 2.1, EGFR 27.9, sodium 131, potassium 3.9, chloride 93, CO2 28, calcium 9.9, total protein 7.6, albumin 3.5, bilirubin total 1.1, AST 20, ALT 10, alkaline phosphatase 67. Troponin 0.49, later 0.46. Protime 14.4, INR 1.4. (1) 240, 42.1. WBC 9.5, hemoglobin 12.7, hematocrit 38.5, platelets down to 92. IMAGING: Chest x-ray shows no pneumothorax, persistent cardiomegaly and old healed granulomatous disease. CT of abdomen and pelvis without contrast shows extensive fecal burden within the colon. No evidence of any small bowel obstruction. Extensive atherosclerotic involvement of the abdominal aortic region. CARDIOVASCULAR: EKG shows normal sinus rhythm with ventricular rate 81 beats per minute, right bundle branch block, right ventricular hypertrophy, possible lateral and inferior infarct. IMPRESSION 1. Abdominal pain, nausea and vomiting. 2. Constipation. 3. Urinary tract infection. 4. Acute coronary syndrome. Elevated troponin. 5. Right bundle branch block on EKG, which is not new. 6. History of PCI and stent. See details in HPI. 7. Hypertension. 8. Hyperlipidemia. 9. Diabetes type 2. 10. Chronic kidney disease. 11. Reformed smoker. PLAN 1. Cardiology consulted to assist with evaluation and management. The patient's troponins have trended up to 0.49 and later 0.48. If there is no more trending upward of the blood pressure, we will proceed with a Lexiscan Cardiolite stress test to further evaluate. 2. The patient was on heparin. We will stop that and put on Lovenox 1 mg/kg subcu daily for anticoagulation therapy. 3. Continue to monitor cardiac enzymes and EKG. 4. Continue patient on aspirin and Plavix and patient did not have a beta sonido on her MAY. In looking back on her discharge a few weeks ago, she was on metoprolol 50 mg b.i.d. We will initiate a little lower dose of metoprolol at 25 mg p.o. twice daily with Unit #: [id number] #: [id number] Patient: NOHEMY GARCIA. We will hold her Cozaar and metolazone due to her acute kidney injury. 5. I discussed with Dr. Roca the patient's (2) situation and plans. 6. Dr. Goode feels that because of her renal failure, we will hold off on any cardiac cath at this time. 7. If cardiac enzymes remain negative and EKG is unremarkable, we will proceed with a Lexiscan Cardiolite stress test tomorrow. 8. On interview and exam, she denies any increased shortness of breath or fatigue. 9. Further recommendations pending per Dr. Goode. Thank you very much for allowing us to assist in the care. Dictated by... Barb Cortez A.P.R.N. for Santino Avila/socorro TD: 06/24/2016 11:26 JOB #: [id number] CONSULTATION REPORT Page 1 of 1 X Barb Cortez APRN X CONSULTATION REPORT
--- NOTE | ~2016-06-22 | EKG ---
PATIENT: NOHEMY HOPKINS UNIT #: [id number] Ventricular Rate: 90 BPM Atrial Rate: 90 BPM P-R Interval: 124 ms QRS Duration: 132 ms Q-T Interval: 412 ms QTC Calculation(Bezet): 504 ms P [place]: 72 degrees Calculated R [place]: -77 degrees Calculated T [place]: 49 degrees Diagnosis Line: Normal sinus rhythm Diagnosis Line: Left axis deviation Diagnosis Line: Right bundle branch block Diagnosis Line: Inferior infarct (cited on or before 28-APR-2016) Diagnosis Line: Abnormal ECG Diagnosis Line: When compared with ECG of 25-JUN-2016 10:31, Diagnosis Line: No significant change was found Diagnosis Line: Confirmed by PASCUAL MONTANA MD ([id number]) on Diagnosis Line: 06/30/2016 11:14:33 PM INTERPRETING MD: WIN
--- NOTE | ~2016-06-22 | CT4 ---
[facility] A Service of [facility] & [facility] RADIOLOGY TEXT RESULTS PATIENT: NOHEMY HOPKINS LOCATION: [facility] 575-01 : 52 UNIT #: [id number] AGE: [address]: Tena Bearden MD SEX: F ORDER DR: [id number] [facility] [address] [place], [place] [address] [id number] MR#: [id number] #: [id number] NAME: NOHEMY HOPKINS : 1950 SEX: F STUDY DATE/TIME: 06/22/2016 18:01 UNIT: [facility] ROOM: STUDY DESCRIPTION: CT Abd and Pelv Wo Cont Attending Physician: Andrew Jimenez M.D. Ordering Physician: Andrew Jimenez M.D. Primary Care Physician: Primary Care Physician No MEDICAL IMAGING REPORT This report is preliminary unless electronic signature is present EXAM CT of the abdomen and pelvis without contrast INDICATIONS Abdominal pain for 7 days. Patient said she cannot keep fluids down. She has not had a bowel movement for [address] images were obtained from the dome of the diaphragm through the symphysis pubis. Oral contrast was administered. This CT exam was performed with one or more of the following radiation dose reduction techniques: automatic exposure control, adjustment of mA and/or kV according to patient size, and iterative reconstruction. FINDINGS Images through the lung bases demonstrate some bibasilar scarring versus atelectasis. Dense calcifications of the mitral valve annulus are noted. There is no pleural or pericardial effusion. Liver is unremarkable given unenhanced technique. Gallbladder is probably also within normal limits. The spleen appears unremarkable. There is a small hiatal hernia. Adrenal glands are normal and pancreas is mildly atrophic. 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 Uterus is surgically absent. Urinary bladder appears unremarkable. Patient's appendix is visualized and is within normal limits. There is no convincing evidence of mechanical bowel obstruction. Patient is noted have oral contrast material which extends all the way to the proximal sigmoid colon. Patient does however have a fairly extensive fecal burden seen within the sigmoid colon and rectum, which is in keeping with the patient's history of constipation. No pneumatosis or free air is seen. I do question if patient has a STS. [facility] A Service of 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 Review of bony windows demonstrates discogenic degenerative disease most pronounced at L5-S1. There is a small fat-containing umbilical hernia. No free fluid or adenopathy is seen within the pelvis. IMPRESSION 1. This patient does have extensive fecal burden seen within the colon particularly extending from the sigmoid colon to the rectum which would be certainly in keeping with the patient's history of constipation. However I do not see convincing evidence of mechanical small bowel obstruction at this time. No pneumatosis or free air is seen. 2. Changes of prior hysterectomy. 3. Uterus is surgically absent. 4. 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 5. Extensive atherosclerotic involvement of the abdominal aorta continuous into the iliac vessels. Dictated by... Jeannie Ochoa M.D. THIS IS AN ELECTRONICALLY VERIFIED REPORT Jeannie Ochoa M.D. at 06/23/2016 4:42 PM AFF/to TD: 06/22/2016 19:37 JOB #: [id number] MEDICAL IMAGING REPORT Page 1 of 1 COPY
--- NOTE | ~2016-06-22 | HP ---
Unit #: [id number] #: [id number] Patient: NOHEMY HOPKINS [id number] [address] [address] [id number] I MR#: [id number] NAME: NOHEMY HOPKINS ROOM: 14554 Age: 66 Sex: F Admission Date: 06/22/2016 : 1950 Attending Physician: Lucero Ortega M.D. HISTORY AND PHYSICAL CHIEF COMPLAINT Abdominal pain. HISTORY OF PRESENT ILLNESS The patient is a 66-year-old female with a past medical history of coronary artery disease, status post non-ST elevation MS, on medical management, hypertension, hyperlipidemia, diabetes, and CHF, brought to the emergency room with abdominal pain. The patient was seen by the PCP with nausea and vomiting for one week, associated with mild generalized rebound abdominal tenderness. The patient was discharged from the hospital a month ago with acute non-ST elevation MS and acute on chronic diastolic heart failure. The patient had a PICC line, and the PICC line was removed. The patient denies any chest pain, fever, or shortness of breath. The last time the patient ate was two to three days ago. The patient has been constipated for one week. The patient has lost 60 pounds without trying since January. The patient's troponins are positive up to 0.19, and she is being admitted for the above reasons. PAST MEDICAL HISTORY 1. Coronary artery disease, status post non-ST elevation MS. 2. Hypertension. 3. Hyperlipidemia. 4. Diabetes. 5. Peripheral arterial disease. 6. Acute on chronic congestive heart failure. PAST SURGICAL HISTORY 1. Cardiac catheterization. 2. Cardiac stent. 3. Aorto-bifemoral bypass. SOCIAL HISTORY The patient lives with her daughter. She quit smoking back in 2010. Her code status is Full Code. FAMILY HISTORY Diabetes. ALLERGIES No known drug allergies. HOME MEDICATIONS 1. Levemir. 2. Cozaar. Unit #: [id number] #: [id number] Patient: NOHEMY HOPKINS 3. Metolazone. 4. NovoLog. 5. Phenergan. 6. Glucotrol. 7. Mucus Relief. 8. Hydralazine. 9. Isosorbide. 10. Januvia. 11. Atorvastatin. 12. Calcium. 13. Breo. 14. Bumex. 15. Cefdinir. 16. Zetia. 17. Aspirin. 18. Tylenol. 19. Zyloprim. 20. Amlodipine. REVIEW OF SYSTEMS A 14-point review of systems was performed and only pertinent positive findings are described above. The remaining are negative. PHYSICAL EXAMINATION GENERAL: Patient is lying in bed not in acute distress. VITAL SIGNS: Temperature 100, pulse 85, respiratory rate 24, blood pressure 156/100, and saturating 94% on room air. HEENT: Head atraumatic, normocephalic. Pupils equal, round, and reactive to light and accommodation. Extraocular movements are intact. NECK: Supple. LUNGS: Decreased air entry at the bases. HEART: Regular rate and rhythm. ABDOMEN: Soft. Positive bowel sounds. EXTREMITIES: No cyanosis. NEUROLOGIC: Alert, awake, and oriented. No gross focal motor deficit. DIAGNOSTIC STUDIES LABORATORY: Glucose 211, BUN 85, creatinine 2.3, sodium 130, potassium 4.1, chloride 90, bicarb 28, calcium 10.3, and total protein 7.6. Lactic acid is 1.7. Troponin 0.19. WBC 11.6, hemoglobin 12.1, hematocrit 37.2, and platelets 100,000. Urinalysis shows 1+ leukocyte esterase, 25-50 urine WBCs, and 4+ urine bacteria. IMAGING: Chest x-ray shows removal of right-sided PICC line. No pneumothorax. Persistent cardiomegaly and old healed granulomatous disease. CT of the abdomen and pelvis shows the patient does have extensive fecal burden seen within the colon particularly extending from the sigmoid colon to the rectum which would be certainly in keeping with the patient's history of constipation. However, I do not see convincing evidence of mechanical small bowel obstruction at this time. Changes of prior hysterectomy. Uterus is surgically absent. Probable mild rotation of the right kidney and actually there might be two right renal collecting systems incompletely evaluated on this exam. Extensive atherosclerotic involvement of the abdominal aorta continuous into the iliac vessels. CARDIOLOGY: EKG shows normal sinus rhythm with sinus arrhythmia and a right bundle branch and T wave inversions in the lateral leads. Unit #: [id number] #: [id number] Patient: NOHEMY HOPKINS ASSESSMENT 1. Non-ST elevation myocardial infarction. 2. Chronic kidney disease. 3. Constipation. 4. Unable to tolerate nausea and vomiting. PLAN Admit the patient to inpatient with telemetry. Patient has been consulted by Cardiology and started on heparin. Will check serial troponins and will have a GI consult for constipation and decreased oral intake. Continue with laxative and if no improvement with laxative, then might consider endoscopy. Repeat the labs again in the morning, and further recommendations will follow. Dictated by Santino Malcolm TD: 06/22/2016 21:30 JOB #: [id number] HISTORY AND PHYSICAL Page 1 of 1 X X HISTORY AND PHYSICAL
--- NOTE | ~2016-06-22 | CO ---
Unit #: [id number] #: [id number] Patient: NOHEMY HOPKINS [id number] [address] [address] [id number] I MR#: [id number] NAME: NOHEMY HOPKINS ROOM: [facility] Age: 66 Sex: F Admission Date: 06/22/2016 : 1950 Attending Physician: Tena Bearden M.D. Consultation Date: 06/25/2016 CONSULTATION REPORT REASON FOR CONSULTATION Positive blood cultures. HISTORY OF PRESENT ILLNESS The patient is a 66-year-old female with multiple medical problems, recent hospitalization to the hospital for CHF exacerbation. At some point, she had a PICC line also. She is coming in with abdominal pain. Workup is in progress. Blood cultures initially were done, 1/2 is enterococcus sensitive to ampicillin. She does have evidence of urinary tract infection with E coli. She is on Rocephin. Infectious Disease consultation requested for further evaluation of antibiotic management. The patient denied any nausea, vomiting, diarrhea, cough, congestion, chest pain, shortness of breath, fevers, or chills. PAST MEDICAL HISTORY 1. Coronary artery disease, status post myocardial infarction. 2. Hypertension. 3. Hyperlipidemia. 4. Diabetes. 5. Peripheral arterial disease. 6. CHF. 7. Cardiac cath. 8. Cardiac stent placement. 9. Aortofemoral bypass. SOCIAL HISTORY Noncontributory. FAMILY HISTORY Noncontributory. ALLERGIES To lisinopril. MEDICATIONS Current medication list was reviewed. Antibiotics include Rocephin. PHYSICAL EXAMINATION GENERAL: Lying comfortably in bed. Does not seem to be in any distress. VITAL SIGNS: Temperature 97.6, pulse 59, respiration 18, blood pressure 115/59. HEENT: Unremarkable. NECK: Supple. CHEST: Clear to auscultation. Unit #: [id number] #: [id number] Patient: NOHEMY HOPKINS HEART: Normal S1, S2. ABDOMEN: Soft, nontender. EXTREMITIES: Shows 1+ edema. She has right upper extremity midline which was placed upon this admission, but as far as a PICC line is concerned, she is not sure when it was removed. DIAGNOSTIC STUDIES IMAGING STUDIES: CT scan of the abdomen and pelvis shows increased stool burden, otherwise no acute changes. Chest x-ray negative for acute pneumonic infiltrates. LABORATORY RESULTS: BUN 47 and creatinine 1.9. LFTs normal upon admission. WBC 10.4, hemoglobin 11.7, platelets 81. Urinalysis had hematuria, pyuria, bacteriuria. Blood culture 1/2 Enterococcus, repeat pending. Urine culture; E coli sensitive to Rocephin. ASSESSMENT 1. Enterococcal bacteremia, questioned source. 2. Urinary tract infection with Escherichia Coli. PLAN At this time, I did look at the 2D echo, which was negative. We will go ahead and follow up on the repeat cultures. Continue with Rocephin for urinary tract infection. Add ampicillin for enterococcal bacteremia. If repeat cultures are positive, then she will need a transesophageal echocardiogram for further evaluation. I would like thank Dr. Bearden for requesting us to participate in the care of this patient. We will follow this patient along with you. Dictated by... Santino Martin TD: 06/25/2016 23:31 JOB #: [id number] CONSULTATION REPORT Page 1 of 1 X Jarvis Samuel MD X CONSULTATION REPORT
[2016-06-22 16:39] LABS: BASOPHIL# 0.1 X10e3 (0-0.3); BASOPHIL% 0.8 % (0-2.5); DIFF IND NO; EOSINOPHIL# 0.1 X10e3 (0-0.7); EOSINOPHIL% 0.6 % (0.0-7.0); HEMATOCRIT 37.2 % (35.0-45.0); HEMOGLOBIN 12.1 gm/dL (12.0-16.0); LYMPHOCYTE# 1.3 X10e3 (1.0-3.5); LYMPHOCYTE% 10.9 % (17.0-45.0); MEAN CELL VOLUME 83.4 FL (83-96); MEAN CORPUSCULAR HGB CONC 32.4 g/dL (30-36); MEAN PLATELET VOLUME 8.8 FL (6.5-11.5); MONOCYTE% 8.8 % (3.0-12.0); NEUTROPHIL# 9.1 X10e3 (1.5-7.1); NEUTROPHIL% 78.9 % (40-75); PLATELET COUNT 100 X10e3 (140-420); RED BLOOD COUNT 4.46 X10e (3.90-5.30); RED CELL DISTRIBUTION WIDTH 16.4 % (11.0-15.5); WHITE BLOOD COUNT 11.6 X10e3 (4.0-10.5)
[2016-06-22 16:58] LABS: POC - CKMB 1.1 ng/mL (0.0-7.9); POC - TROPONIN 0.16 ng/mL (<=0.05)
[2016-06-22 17:00] LABS: ALBUMIN SERUM 3.5 g/dL (3.5-5.0); BILIRUBIN, DIRECT 0.2 mg/dL (0.0-0.2); BILIRUBIN,INDIRECT 0.9 mg/dL (0.0-0.9); BILIRUBIN,TOTAL 1.1 mg/dL (0.2-2.0); BUN/CREATININE RATIO 36.95; CALCIUM SERUM 10.3 mg/dL (8.4-10.2); CREATININE SERUM 2.3 mg/dL (0.6-1.4); POTASSIUM 4.1 mmol/L (3.5-5.1); PROTEIN TOTAL SERUM 7.6 g/dL (6.0-8.3)
[~2016-06-22 17:01] MED LIST changes: +AMLODIPINE BESY10 MG PO; +ASPIRIN FREE325 MG PO; +ASPIRIN81 MG PO; +ATORVASTATIN CA40 MG PO; +BREO ELLIPTA 21 EACH INH; +BUMEX2 MG PO; +CEFDINIR300 MG PO; +COZAAR25 MG PO; +EZETIMIBE10 MG PO; +GLUCOTROL10 MG PO; +HYDRALAZINE HC100 MG PO; +ISOSORBIDE DINI30 MG PO; +JANUVIA50 MG PO; +LEVEMIR100 UNITS/ SUBQ; +METOLAZONE5 MG PO; +MUCUS RELIEF600 M1 PO; +NOVOLOG100 UNIT/1; +NOVOLOG100 UNITS/ SUBQ; +OMNICEF300 M1 PO; +PHENERGAN PO; +PREDNISONE PO; +SYMBICORT INH; +TYLENOL WITH C1 EACH PO; +ZYLOPRIM PO; +ZYLOPRIM100 MG PO
[2016-06-22] MEDS ORDERED: ALBUTEROL17 GM INH (17:02)
[2016-06-22] MEDS ORDERED: VITAMIN D1000 UNI2 PO (17:02)
[2016-06-22 17:55] LABS: URINE SOURCE CLEAN CATCH
[2016-06-22 18:07] LABS: URINE APPEARANCE CLEAR; URINE BILIRUBIN NEG (NEG); URINE BLOOD TRACE (NEG); URINE COLOR YELLOW; URINE GLUCOSE NEG (NEG); URINE KETONE NEG (NEG); URINE LEUKOCYTE ESTERASE 1+ (NEG); URINE NITRATE NEG (NEG); URINE PH 5.5 (5-8); URINE PROTEIN 1+ (NEG); URINE SPECIFIC GRAVITY 1.015 (1.003-1.035); URINE UROBILINOGEN 0.2 MG/DL (NEG)
[2016-06-22 18:10] LABS: CULTURE INDICATED? YES; U HYALINE CASTS AUWI 0-2 /[LPF]; URINE BACTERIA AUWI 4+ (NEGATIVE); URINE SQUAMOUS EPITHELIAL CELL NONE SEEN /[HPF]; UWBCS1 AUWI 25-50 (0-5)
[2016-06-22 19:25] LABS: POC - CKMB 1.2 ng/mL (0.0-7.9); POC - TROPONIN 0.19 ng/mL (<=0.05)
[2016-06-23 05:22] LABS: BASOPHIL# 0.1 X10e3 (0-0.3); BASOPHIL% 0.6 % (0-2.5); EOSINOPHIL# 0.1 X10e3 (0-0.7); EOSINOPHIL% 1.4 % (0.0-7.0); HEMATOCRIT 38.5 % (35.0-45.0); HEMOGLOBIN 12.7 gm/dL (12.0-16.0); LYMPHOCYTE# 1.4 X10e3 (1.0-3.5); LYMPHOCYTE% 14.7 % (17.0-45.0); MEAN CELL VOLUME 83.1 FL (83-96); MEAN CORPUSCULAR HEMOGLOBIN 27.4 PG (28-34); MEAN PLATELET VOLUME 8.7 FL (6.5-11.5); MONOCYTE# 1.2 X10e3 (0-1.0); MONOCYTE% 12.7 % (3.0-12.0); NEUTROPHIL# 6.7 X10e3 (1.5-7.1); NEUTROPHIL% 70.6 % (40-75); PLATELET COUNT 92 X10e3 (140-420); RED BLOOD COUNT 4.63 X10e (3.90-5.30); RED CELL DISTRIBUTION WIDTH 16.4 % (11.0-15.5); WHITE BLOOD COUNT 9.5 X10e3 (4.0-10.5)
[2016-06-23 06:09] LABS: DIFF IND NO
[2016-06-23 06:17] LABS: CK TOTAL 32 IU/L (26-140)
[2016-06-23 06:25] LABS: BUN/CREATININE RATIO 34.28; CALCIUM SERUM 9.9 mg/dL (8.4-10.2); CREATININE SERUM 2.1 mg/dL (0.6-1.4); GLOM FILT RATE Estimated 27.9 mL/min (>60); POTASSIUM 3.9 mmol/L (3.5-5.1)
[2016-06-23 11:25] LABS: CHOLESTEROL 225 mg/dL (0-200); HDL CHOLESTEROL 42 mg/dL (35-95); LDL CHOLESTEROL 159 mg/dL (-130); LDL/HDL RATIO 4 RATIO (0-4); TRIGLYCERIDES 119 mg/dL (10-160)
[2016-06-23 12:02] LABS: CK TOTAL 25 IU/L (26-140)
[2016-06-24 06:24] LABS: HEMATOCRIT 33.5 % (35.0-45.0); MEAN CELL VOLUME 83.2 FL (83-96); MEAN CORPUSCULAR HEMOGLOBIN 27.2 PG (28-34); MEAN CORPUSCULAR HGB CONC 32.7 g/dL (30-36); MEAN PLATELET VOLUME 8.6 FL (6.5-11.5); RED BLOOD COUNT 4.02 X10e (3.90-5.30); RED CELL DISTRIBUTION WIDTH 16.2 % (11.0-15.5)
[2016-06-24 07:00] LABS: MAGNESIUM 1.9 mg/dL (1.6-3.0); PHOSPHOROUS 1.9 mg/dL (2.5-4.6)
[2016-06-24 07:25] LABS: CALCIUM SERUM 9.2 mg/dL (8.4-10.2); CREATININE SERUM 1.9 mg/dL (0.6-1.4); GLOM FILT RATE Estimated 31.5 mL/min (>60)
[2016-06-25 05:32] LABS: HEMATOCRIT 36.4 % (35.0-45.0); HEMOGLOBIN 11.7 gm/dL (12.0-16.0); MEAN CORPUSCULAR HGB CONC 32.2 g/dL (30-36); MEAN PLATELET VOLUME 8.7 FL (6.5-11.5); RED BLOOD COUNT 4.33 X10e (3.90-5.30); RED CELL DISTRIBUTION WIDTH 16.4 % (11.0-15.5); WHITE BLOOD COUNT 10.4 X10e3 (4.0-10.5)
[2016-06-25 06:51] LABS: BUN/CREATININE RATIO 24.73; CALCIUM SERUM 9.5 mg/dL (8.4-10.2); CREATININE SERUM 1.9 mg/dL (0.6-1.4); GLOM FILT RATE Estimated 31.5 mL/min (>60)
[2016-06-26 06:04] LABS: HEMATOCRIT 32.8 % (35.0-45.0); HEMOGLOBIN 10.9 gm/dL (12.0-16.0); MEAN CELL VOLUME 82.1 FL (83-96); MEAN CORPUSCULAR HEMOGLOBIN 27.2 PG (28-34); MEAN CORPUSCULAR HGB CONC 33.2 g/dL (30-36); MEAN PLATELET VOLUME 8.9 FL (6.5-11.5); RED CELL DISTRIBUTION WIDTH 16.6 % (11.0-15.5); WHITE BLOOD COUNT 9.7 X10e3 (4.0-10.5)
[2016-06-26 06:47] LABS: BUN/CREATININE RATIO 21.81; CALCIUM SERUM 9.3 mg/dL (8.4-10.2); CREATININE SERUM 2.2 mg/dL (0.6-1.4); GLOM FILT RATE Estimated 26.4 mL/min (>60); POTASSIUM 3.6 mmol/L (3.5-5.1)
[2016-06-26 10:36] LABS: ARTERIAL BLD GAS O2 SATURATION 91.5 % (90.0-100.0); ARTERIAL BLOOD GAS CARBOXY HB 1.2 %sat (0.0-9.0); ARTERIAL BLOOD GAS HCO3 27.9 mmol/L; ARTERIAL BLOOD GAS PCO2 38.7 mmHg (35.0-45.0); ARTERIAL BLOOD GAS pH 7.466 (7.350-7.450)
[2016-06-26 10:37] LABS: ARTERIAL BLOOD GAS ART SITE LEFT RADIAL; ARTERIAL BLOOD GAS PO2 63.3 mmHg (80.0-100); ARTERIAL DRAW? YES
[2016-06-27 07:31] LABS: HEMATOCRIT 29.9 % (35.0-45.0); HEMOGLOBIN 9.8 gm/dL (12.0-16.0); MEAN CELL VOLUME 82.4 FL (83-96); MEAN CORPUSCULAR HEMOGLOBIN 27.1 PG (28-34); MEAN CORPUSCULAR HGB CONC 32.9 g/dL (30-36); MEAN PLATELET VOLUME 8.5 FL (6.5-11.5); RED BLOOD COUNT 3.62 X10e (3.90-5.30); WHITE BLOOD COUNT 10.4 X10e3 (4.0-10.5)
[2016-06-27 07:52] LABS: BUN/CREATININE RATIO 21.76; CALCIUM SERUM 8.5 mg/dL (8.4-10.2); CREATININE SERUM 1.7 mg/dL (0.6-1.4); GLOM FILT RATE Estimated 36.1 mL/min (>60); MAGNESIUM 1.8 mg/dL (1.6-3.0); PHOSPHOROUS 3.4 mg/dL (2.5-4.6)
[2016-06-28 05:24] LABS: HEMATOCRIT 28.6 % (35.0-45.0); HEMOGLOBIN 9.5 gm/dL (12.0-16.0); MEAN CELL VOLUME 81.9 FL (83-96); MEAN CORPUSCULAR HEMOGLOBIN 27.3 PG (28-34); MEAN CORPUSCULAR HGB CONC 33.4 g/dL (30-36); MEAN PLATELET VOLUME 9.3 FL (6.5-11.5); RED BLOOD COUNT 3.49 X10e (3.90-5.30); RED CELL DISTRIBUTION WIDTH 17.1 % (11.0-15.5); WHITE BLOOD COUNT 9.3 X10e3 (4.0-10.5)
[2016-06-28 07:49] LABS: BUN/CREATININE RATIO 18.12; CREATININE SERUM 1.6 mg/dL (0.6-1.4); GLOM FILT RATE Estimated 38.8 mL/min (>60); MAGNESIUM 1.9 mg/dL (1.6-3.0); POTASSIUM 4.1 mmol/L (3.5-5.1)
[2016-06-29 06:06] LABS: HEMATOCRIT 29.8 % (35.0-45.0); HEMOGLOBIN 9.8 gm/dL (12.0-16.0); MEAN CELL VOLUME 82.2 FL (83-96); MEAN CORPUSCULAR HEMOGLOBIN 27.1 PG (28-34); RED BLOOD COUNT 3.62 X10e (3.90-5.30); RED CELL DISTRIBUTION WIDTH 16.6 % (11.0-15.5); WHITE BLOOD COUNT 9.2 X10e3 (4.0-10.5)
[2016-06-29 07:09] LABS: BUN/CREATININE RATIO 12.94; CALCIUM SERUM 9.2 mg/dL (8.4-10.2); CREATININE SERUM 1.7 mg/dL (0.6-1.4); GLOM FILT RATE Estimated 36.1 mL/min (>60); MAGNESIUM 1.9 mg/dL (1.6-3.0); POTASSIUM 4.1 mmol/L (3.5-5.1)
[2016-06-29 15:08] LABS: ALBUMIN SERUM 2.8 g/dL (3.5-5.0); BILIRUBIN,TOTAL 0.3 mg/dL (0.2-2.0); BUN/CREATININE RATIO 13.33; CALCIUM SERUM 9.2 mg/dL (8.4-10.2); CREATININE SERUM 1.5 mg/dL (0.6-1.4); POTASSIUM 4.2 mmol/L (3.5-5.1); PROTEIN TOTAL SERUM 6.2 g/dL (6.0-8.3)
[2016-06-29 21:37] LABS: HEMATOCRIT 31.5 % (35.0-45.0); HEMOGLOBIN 10.3 gm/dL (12.0-16.0); MEAN CELL VOLUME 82.3 FL (83-96); MEAN CORPUSCULAR HEMOGLOBIN 26.9 PG (28-34); MEAN CORPUSCULAR HGB CONC 32.7 g/dL (30-36); MEAN PLATELET VOLUME 7.7 FL (6.5-11.5); RED BLOOD COUNT 3.83 X10e (3.90-5.30); RED CELL DISTRIBUTION WIDTH 16.4 % (11.0-15.5); WHITE BLOOD COUNT 10.3 X10e3 (4.0-10.5)
[2016-06-29 21:43] LABS: PARTIAL THROMBOPLASTIN TIME 34.5 SECONDS (23.5-31.3); PROTHROMBIN TIME (PATIENT) 10.8 SECONDS (9.6-11.5)
[2016-06-29 21:55] LABS: BILIRUBIN,TOTAL 0.6 mg/dL (0.2-2.0); BUN/CREATININE RATIO 12.85; CALCIUM SERUM 9.3 mg/dL (8.4-10.2); CREATININE SERUM 1.4 mg/dL (0.6-1.4); GLOM FILT RATE Estimated 45.6 mL/min (>60); POTASSIUM 4.1 mmol/L (3.5-5.1); PROTEIN TOTAL SERUM 6.8 g/dL (6.0-8.3)
== END 2016-06-30 03:54 | disposition hospice, home (50) | DRG 871 ==
LOC: CED 17:01 → CEDOF 18:15 → C5C 22:21 → CICCU2 06-29 22:09
PROVIDERS: Emergency Medicine; Family Medicine; Internal Medicine; Internal Medicine Cardiovascular Disease; Internal Medicine Nephrology; Nurse Practitioner Family
PROC: 05H533Z Insertion of Infusion Device into Right Subclavian Vein, Percutaneous Approach (ICD-10-PCS; principal; 2016-06-25)
PROC: B546ZZA Ultrasonography of Right Subclavian Vein, Guidance (ICD-10-PCS; 2016-06-25)
DX: A41.51 Sepsis due to Escherichia coli [E. coli] (principal); I21.4 Non-ST elevation (NSTEMI) myocardial infarction; I60.6 Nontraumatic subarachnoid hemorrhage from other intracranial arteries; N17.9 Acute kidney failure, unspecified; D69.6 Thrombocytopenia, unspecified; I13.0 Hypertensive heart and chronic kidney disease with heart failure and stage 1 through stage 4 chronic kidney disease, or unspecified chronic kidney disease; I50.32 Chronic diastolic (congestive) heart failure; E11.22 Type 2 diabetes mellitus with diabetic chronic kidney disease; N18.3 Chronic kidney disease, stage 3 (moderate); N39.0 Urinary tract infection, site not specified; E87.1 Hypo-osmolality and hyponatremia; R65.20 Severe sepsis without septic shock; I25.10 Atherosclerotic heart disease of native coronary artery without angina pectoris; Z95.5 Presence of coronary angioplasty implant and graft; E78.5 Hyperlipidemia, unspecified; Z87.891 Personal history of nicotine dependence; Z79.4 Long term (current) use of insulin; J44.9 Chronic obstructive pulmonary disease, unspecified; Z99.81 Dependence on supplemental oxygen; K59.00 Constipation, unspecified; I08.8 Other rheumatic multiple valve diseases; Z79.82 Long term (current) use of aspirin; Z79.52 Long term (current) use of systemic steroids; E83.52 Hypercalcemia; I73.9 Peripheral vascular disease, unspecified; I25.2 Old myocardial infarction; Z83.3 Family history of diabetes mellitus; I45.10 Unspecified right bundle-branch block
CPT/HCPCS: 36415; 36600; 70450; 71010; 74176; 78451; 80048; 80053; 80061; 80076; 81003; 82150; 82550; 82553; 82728; 82803; 82947; 83036; 83605; 83690; 83735; 83880; 84100; 84443; 84484; 85025; 85027; 85610; 85652; 85730; 87040; 87077; 87086; 87088; 87186; 92610; 93005; 94640; 94760; 96361; 96374; 97116; 97163; 97167; 97535; 99285; A9500; C9113; G8978-GP; G8979-GP; G8987-GO; G8988-GO; G8996-GN; G8997-GN; G8998-GN; J0290; J0696; J1644; J1650; J1815; J1885; J2270; J2405; J2720; J2765; J3490